=== PATIENT | female | born 1950 | race Caucasian/White ===

== ENCOUNTER 2023-03-17 09:00 | Outpatient (RCR) | payer MEDICARE, OTHER, SELFPAY ==
[2023-03-10 08:46] VITALS: BP 171/61; PULSE 71; RESP 18; TEMP 35.6; BMI 24.5
--- NOTE | 2023-03-10 12:36 | PCM.WC.HP ---
History of Present Illness Date of Service: 03/10/23 Chief Complaint: Traumatic wound of the left pretibial surface History of Wound: This is a 72-year-old female who is generally healthy and active. On approximately January 04, 2023, the patient lost her balance and fell, impacting her left pretibial surface against a coffee table. As result, she sustained an open wound on the left pretibial surface. She was using peroxide topically, and subsequently developed a cellulitis. Her primary care physician urged her to discontinue using peroxide topically, and she has been using a Telfa dressing with Neosporin. In treatment for her cellulitis, the patient has been treated with doxycycline 100 mg p.o. twice daily for 7 days, which is now nearly completed. The patient is active. She is relatively healthy, suffering only from hypertension and sciatica. She smokes only several cigarettes per day, and has been counseled as to the potential adverse effects. FORMERLY [facility], [facility] Medical History (Updated 03/10/23 @ 12:[address] Florencio Alford MD) Cellulitis of left leg Hypertension Non-pressure chronic ulcer of left calf with fat layer exposed Sciatica Tobacco abuse counseling Tobacco abuse disorder Traumatic open wound of left lower leg Home Medications amlodipine 10 mg tablet (Norvasc) 10 mg PO DAILY 03/10/23 [History Last Taken Unknown] doxycycline hyclate 100 mg tablet 100 mg PO BID 03/10/23 [History Last Taken Unknown] gabapentin 300 mg capsule (Neurontin) 300 mg PO TID 03/10/23 [History Last Taken Unknown] hydrochlorothiazide 12.5 mg capsule 12.5 mg PO QODAY 03/10/23 [History Last Taken Unknown] meloxicam 15 mg tablet 15 mg PO DAILY 03/10/23 [History Last Taken Unknown] no surgical history Social History Smoking Status: Light Smoker (<10/day) Vital Signs Vital Signs Vital Signs: 03/10/23 08:46 Temperature 96.1 F L Temperature Source Temporal Pulse Rate 71 Respiratory Rate 18 Blood Pressure 171/61 H Blood Pressure Mean 97 Blood Pressure Source Monitor Blood Pressure Position Sitting Blood Pressure Location Left Arm Oxygen Delivery Method Room Air Weight Weight: 145 lb Body Mass Index (BMI) 24.5 Physical Exam Const alert, oriented x3, no apparent distress, average body habitus and well nourished Constitutional Narrative: The patient is of relatively normal body habitus, with a BMI of 24.5. General Appearance: cooperative, comfortable, well kempt and well developed Orientation / Consciousness: awake, oriented to person, oriented to place and oriented to time Exam Limitations: no limitations HEENT normocephalic, head/scalp atraumatic, hearing grossly normal bilaterally and external ears normal Head and Scalp: normal to inspection, normocephalic and atraumatic External Ear: external ears normal Eyes PERRL and EOMs intact bilaterally General Eye: normal appearance of both eyes Resp normal respiratory effort, normal air movement, no retractions and no use of accessory muscles Effort and Inspection: able to speak in complete sentences Extremity no calf tenderness General Extremity: Negative for clubbing or cyanosis Skin Wound Narrative: The patient's lower extremities are warm and well-perfused. Pedal pulses are bilaterally palpable. No significant swelling is noted. Two open ulcerations are noted on the left pretibial surface. The dimensions of each are documented elsewhere. There is a moderate amount of bioburden and nonviable/necrotic tissue. Slight periwound erythema is noted. Neuro oriented x3, CN's II-XII intact bilaterally, moves all extremities, no focal motor deficits and no sensory deficits noted Sensorium / Orientation: awake, alert, oriented to person, oriented to place and oriented to time Psych Appearance: grossly normal and appropriate Attitude: calm Activity / Motor Behavior: appropriate eye contact Speech: normal speech Mood & Affect: euthymic mood Thought Process: normal thought process Thought Content: normal thought content Attention / Concentration: attention grossly intact Debridement Note Debridement Note Wound debrided: Left pretibial wounds Laterality: Left Type of Debridement: Excisional debridement Anesthesia Used: 5% Lidocaine Gel Depth: Down to and including healthy tissue and in the subcutaneous layer Percentage of wound debrided: 100 Instrument Used: 5mm curette Severity: Fat Layer Exposed Amount of bleeding with debridement: Mild Bleeding Controlled with: Compression and gauze Patient tolerated procedure: Patient tolerated procedure well Post-Debridement Measurements and Additional Note: Post-Debridement Measurements/Treatment LEE - Nurse 1 - General Ulcer Assessment Start: 03/10/23 08:45 Freq: Status: Active Protocol: LAUREN Activity Type Activity Date Activity User E-sign Co-sign Detail Recorded Client Recorded Date Recorded By Document 03/10/23 08:46 KW Desktop 03/10/23 09:07 KW 03/10/23 08:46 WC - Today's Visit Information Type of service Initial Visit Arrival Mode Ambulatory Patient Identification Verified (Name & Yes ) Height and Weight Height 5 ft 4.5 in Weight 145 lb Weight in Pounds 145.0 lbs Weight Measurement Method Stated by Patient Body Mass Index (BMI) 24.5 BMI Classification Normal BSA - Chanel 1.72 Vital Signs Temperature (97.8 F-99.1 F) 96.1 F L Temperature Source Temporal Pulse Rate (60-100) 71 Pulse Location Monitor Respiratory Rate (12-18) 18 Respiratory rate source Observation Oxygen Delivery Method Room Air Blood Pressure (90/60-120/80) 171/61 H Blood Pressure Mean 97 Source Monitor Position Sitting Blood Pressure Location Left Arm History Since Last Visit- (Skip if this is Patient's initial visit) Left Footwear Regular Shoe Right Footwear Regular Shoe Pain Scale: 0-10 Numeric Is Patient Pain Free? No LLE -Description Burning -Intensity 4 -Alleviating Factors/Interventions None Communication Assessment Preferred language [place] [employer] Tool Setter Required No Able to Read Yes Able to Write Yes Communication Tools None Caregiver Communication Skills No Impairment Impairment Right Hearing Abillity Normal Left Hearing Abillity Normal Visual Assistive Devices Glasses Teaching Assessment Preferences Verbal,Written, Demonstration Barriers to Learning None Readiness To Learn Excellent Willingness to Engage in Self Management High Activies Readiness to Engage in Self Management High Activities Anxiety Level Calm Cooperation Cooperative Perception Coherent Interest in Health Problem Asks Questions Education Importance Acknowledges Need Does Patient Smoke tobacco or other Yes substances Smoking Status Light Smoker (< 10/day) Is Patient Diabetic No Functional Assessment Recent Decline in Ability to Perform Denies Any Declines 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 CLUSTER -Current Size (cm) - Length 6.3 -Current Size (cm) - Width 1.7 -Current Size (cm) - Depth 0.4 -Total Square Cm 10.71 -Photo Taken Yes -Exudate Amt Medium -Exudate Type Serosanguineous -Wound Margin Distinct, Outline Attached -Granulation Amt Small (1-33%) -Granulation Quality Red -Necrosis Amt Large (67-100%) -Necrotic Tissue Type Adherent Slough -Texture (Anni-wound Skin Appearance) Assessed -Moisture (Anni-wound Skin Appearance) Assessed -Color (Anni-wound Skin Appearance) Assessed, Erythema -Temperature (Anni-wound Skin No Abnormality Appearance) (Pt Warm) -Ulcer Cleansing Soap and Water -Foul Odor after Cleansing No -Anesthetic Used 5% Lidocaine Gel Left Calf (cm) 32.0 Left Ankle (cm) 20.0 WC - Nurse 2 - General Ulcer CM Notes Start: 03/10/23 08:45 Freq: Status: Active Protocol: Activity Type Activity Date Activity User E-sign Co-sign Detail Recorded Client Recorded Date Recorded By Document 03/10/23 11:32 PL [id number] 03/10/23 11:33 PL 03/10/23 11:32 Wound Center Nurse 2 #1 LEFT MONTEMAYOR CLUSTER -Time 09:19 -Correct Patient Yes -Correct Side, Site, Position Yes -Correct Procedure Yes -Procedure Performed Yes -Type of Procedure Debridement -Clinical Debridement Subcutaneous -Tissue Removed Subcutaneous -Post Debridement (cm) - Length 6.3 -Post Debridement (cm) - Width 1.7 -Post Debridement (cm) - Depth 0.4 -Total Square (Post) (cm) 10.71 -Area of Debridement (cm) - Length 6.3 -Area of Debridement (cm) - Width 1.7 -Total Square (Area) (cm) 10.71 -Tunneling No -Undermining/Tunneling No -Circular Undermining No -Wound/Ulcer Outcome Not Healed -Ulcer Cleansing Rinsed/ Irrigated with Saline -Foul Odor after Cleansing No -Bioengineered Tissue No -Bleeding Controlled with Pressure -Treatment Response Procedure Tolerated Well -Debridement - Subq, 1st 20sq cm Yes Pain Scale: 0-10 Numeric Is Patient Pain Free? Yes WC - Nurse 3 - General Ulcer D/C NN Start: 03/10/23 08:45 Freq: Status: Active Protocol: Activity Type Activity Date Activity User E-sign Co-sign Detail Recorded Client Recorded Date Recorded By Document 03/10/23 11:32 PL [id number] 03/10/23 11:33 PL 03/10/23 11:32 Is Patient Pain Free? Yes Assessment/Plan Assessment/Plan (1) Traumatic open wound of left lower leg: CODE(S): S81.802A - Unspecified open wound, left lower leg, initial encounter QUALIFIERS: Encounter type: initial encounter Qualified Code(s): S81.802A - Unspecified open wound, left lower leg, initial encounter (2) Non-pressure chronic ulcer of left calf with fat layer exposed: CODE(S): L97.222 - Non-pressure chronic ulcer of left calf with fat layer exposed (3) Cellulitis of left leg: CODE(S): L03.116 - Cellulitis of left lower limb (4) Tobacco abuse disorder: CODE(S): Z72.0 - Tobacco use (5) Tobacco abuse counseling: CODE(S): Z71.6 - Tobacco abuse counseling (6) Hypertension: CODE(S): I10 - Essential (primary) hypertension (7) Sciatica: CODE(S): M54.30 - Sciatica, unspecified side PLAN: Plan This is a 72-year-old generally healthy female who presented with atraumatic wound on the left pretibial surface. The wound occurred as a result of a traumatic impact of her left pretibial surface against a coffee table. The patient developed a chronic, nonhealing wound with cellulitis. Most recently, she has been treated with a course of oral doxycycline, which is now nearly completed. She has been using Neosporin and Telfa topically. The patient has been instructed to complete her course of doxycycline. Because of the presence of necrotic and nonviable tissue at the surface of her wound, we are to implement the use of collagenase Santyl topically, which will be applied on a daily basis. The patient has been instructed in the appropriate means of application. She has been provided a prescription and coupon for the purchase of collagenase Santyl. Additionally, serial debridements are anticipated to rid the wound surface of the nonviable material. A gauze dressing has been recommended for use over the collagenase Santyl with each application. The patient is to return in 1 week for reassessment. Total time: 48 minutes
[2023-03-17 08:51] VITALS: BP 151/60; PULSE 68; RESP 18; TEMP 36.7; BMI 24.5
--- NOTE | 2023-03-17 09:13 | PCM.WC.HP ---
History of Present Illness Date of Service: 03/17/23 Chief Complaint: Traumatic wound of the left pretibial surface History of Wound: This is a 72-year-old female who is generally healthy and active. On approximately January 04, 2023, the patient lost her balance and fell, impacting her left pretibial surface against a coffee table. As result, she sustained an open wound on the left pretibial surface. She was using peroxide topically, and subsequently developed a cellulitis. Her primary care physician urged her to discontinue using peroxide topically, and she has been using a Telfa dressing with Neosporin. In treatment for her cellulitis, the patient has been treated with doxycycline 100 mg p.o. twice daily for 7 days, which is now nearly completed. The patient is active. She is relatively healthy, suffering only from hypertension and sciatica. She smokes only several cigarettes per day, and has been counseled as to the potential adverse effects. [facility] Medical History Cellulitis of left leg Hypertension Non-pressure chronic ulcer of left calf with fat layer exposed Sciatica Tobacco abuse counseling Tobacco abuse disorder Traumatic open wound of left lower leg Home Medications amlodipine 10 mg tablet (Norvasc) 10 mg PO DAILY 03/10/23 [History Last Taken Unknown] doxycycline hyclate 100 mg tablet 100 mg PO BID 03/10/23 [History Last Taken Unknown] gabapentin 300 mg capsule (Neurontin) 300 mg PO TID 03/10/23 [History Last Taken Unknown] hydrochlorothiazide 12.5 mg capsule 12.5 mg PO QODAY 03/10/23 [History Last Taken Unknown] meloxicam 15 mg tablet 15 mg PO DAILY 03/10/23 [History Last Taken Unknown] Surgical History no surgical history Social History Smoking Status: Light Smoker (<10/day) Vital Signs Vital Signs Vital Signs: 03/17/23 08:51 Temperature 98.1 F Temperature Source Temporal Pulse Rate 68 Respiratory Rate 18 Blood Pressure 151/60 H Blood Pressure Mean 90 Blood Pressure Source Monitor Blood Pressure Position Sitting Blood Pressure Location Left Arm Oxygen Delivery Method Room Air Weight Weight: 145 lb Body Mass Index (BMI) 24.5 Physical Exam Const alert, oriented x3, no apparent distress, average body habitus and well nourished Constitutional Narrative: The patient is of relatively normal body habitus, with a BMI of 24.5. General Appearance: cooperative, comfortable, well kempt and well developed Orientation / Consciousness: awake, oriented to person, oriented to place and oriented to time Exam Limitations: no limitations HEENT normocephalic, head/scalp atraumatic, hearing grossly normal bilaterally and external ears normal Head and Scalp: normal to inspection, normocephalic and atraumatic External Ear: external ears normal Eyes PERRL and EOMs intact bilaterally General Eye: normal appearance of both eyes Resp normal respiratory effort, normal air movement, no retractions and no use of accessory muscles Effort and Inspection: able to speak in complete sentences Extremity no calf tenderness General Extremity: Negative for clubbing or cyanosis Skin Wound Narrative: The patient's lower extremities are warm and well-perfused. Pedal pulses are bilaterally palpable. No significant swelling is noted. Two open ulcerations are noted on the left pretibial surface. The dimensions of each are documented elsewhere. There is a moderate amount of bioburden and nonviable/necrotic tissue. The amount of nonviable tissue has diminished since the patient's initial visit. There are increasing areas of pink, healthy, granulation tissue. There is no evidence of infection or cellulitis. Neuro oriented x3, CN's II-XII intact bilaterally, moves all extremities, no focal motor deficits and no sensory deficits noted Sensorium / Orientation: awake, alert, oriented to person, oriented to place and oriented to time Psych Appearance: grossly normal and appropriate Attitude: calm Activity / Motor Behavior: appropriate eye contact Speech: normal speech Mood & Affect: euthymic mood Thought Process: normal thought process Thought Content: normal thought content Attention / Concentration: attention grossly intact Debridement Note Debridement Note Wound debrided: Left pretibial wounds Laterality: Left Type of Debridement: Excisional debridement Anesthesia Used: 5% Lidocaine Gel Depth: Down to and including healthy tissue and in the subcutaneous layer Percentage of wound debrided: 100 Instrument Used: 5mm curette Severity: Fat Layer Exposed Amount of bleeding with debridement: Mild Bleeding Controlled with: Compression and gauze Patient tolerated procedure: Patient tolerated procedure well Post-Debridement Measurements and Additional Note: Post-Debridement Measurements/Treatment LEE - Nurse 1 - General Ulcer Assessment Start: 03/10/23 08:45 Freq: Status: Active Protocol: LOWEXT Activity Type Activity Date Activity User E-sign Co-sign Detail Recorded Client Recorded Date Recorded By Document 03/10/23 08:46 KW Desktop 03/10/23 09:07 KW Document 03/17/23 08:51 KW Desktop 03/17/23 09:01 KW 03/10/23 03/17/23 08:46 08:51 WC - Today's Visit Information Type of service Initial Visit Nurse-only Visit Arrival Mode Ambulatory Ambulatory Patient Identification Verified (Name & Yes Yes ) Height and Weight Height 5 ft 4.5 in Weight 145 lb Weight in Pounds 145.0 lbs Weight Measurement Method Stated by Patient Body Mass Index (BMI) 24.5 24.5 BMI Classification Normal Normal BSA - Chanel 1.72 Vital Signs Temperature (97.8 F-99.1 F) 96.1 F L 98.1 F Temperature Source Temporal Temporal Pulse Rate (60-100) 71 68 Pulse Location Monitor Monitor Respiratory Rate (12-18) 18 18 Respiratory rate source Observation Observation Oxygen Delivery Method Room Air Room Air Blood Pressure (90/60-120/80) 171/61 H 151/60 H Blood Pressure Mean 97 90 Source Monitor Monitor Position Sitting Sitting Blood Pressure Location Left Arm Left Arm History Since Last Visit- (Skip if this is Patient's initial visit) Have you changed medications since your No last visit? Any new allergies or adverse reactions No Had a fall/change in ADL's that may No increase risk of falls Signs or symptoms of abuse and/or No neglect since last visit Have you been in the hospital since your No last visit? Has dressing in place as prescribed Yes Has compression in place as prescribed Yes Has offloadiing in place as prescribed No Experienced any changes in pain level or No management Left Footwear Regular Shoe Regular Shoe Right Footwear Regular Shoe Regular Shoe Pain Scale: 0-10 Numeric Is Patient Pain Free? No Yes LLE -Description Burning -Intensity 4 -Alleviating Factors/Interventions None Communication Assessment Preferred language Lao [employer] Assembly Worker Required No Able to Read Yes Able to Write Yes Communication Tools None Caregiver Communication Skills No Impairment Impairment Right Hearing Abillity Normal Left Hearing Abillity Normal Visual Assistive Devices Glasses Teaching Assessment Preferences Verbal,Written, Demonstration Barriers to Learning None Readiness To Learn Excellent Willingness to Engage in Self Management High Activies Readiness to Engage in Self Management High Activities Anxiety Level Calm Cooperation Cooperative Perception Coherent Interest in Health Problem Asks Questions Education Importance Acknowledges Need Does Patient Smoke tobacco or other Yes substances Smoking Status Light Smoker (< 10/day) Is Patient Diabetic No Functional Assessment Recent Decline in Ability to Perform Denies Any Declines Culture/Restorationist/Social Media Editor Cultural/Restorationist Needs that may affect No Treatment Plan Would you allow our hospital warehouse order selector to No meet you for the purpose of spiritual/ emotional support? Social Media Editor to contact place of anabaptist No WC - Nurse 1 - General Ulcer Measurement Start: 03/10/23 08:45 Freq: Status: Active Protocol: Activity Type Activity Date Activity User E-sign Co-sign Detail Recorded Client Recorded Date Recorded By Document 03/10/23 08:46 KW Desktop 03/10/23 09:07 KW Document 03/17/23 08:51 KW Desktop 03/17/23 09:01 KW 03/10/23 03/17/23 08:46 08:51 Wound Center Nurse 1 #1 LEFT MONTEMAYOR CLUSTER -Current Size (cm) - Length 6.3 6 -Current Size (cm) - Width 1.7 1.5 -Current Size (cm) - Depth 0.4 0.2 -Total Square Cm 10.71 9.0 -Photo Taken Yes -Exudate Amt Medium Medium -Exudate Type Serosanguineous Serosanguineous -Wound Margin Distinct, Distinct, Outline Outline Attached Attached -Granulation Amt Small (1-33%) Small (1-33%) -Granulation Quality [place] -Necrosis Amt Large (67-100%) Large (67-100%) -Necrotic Tissue Type Adherent Slough Adherent Slough -Texture (Anni-wound Skin Appearance) Assessed Assessed -Moisture (Anni-wound Skin Appearance) Assessed Assessed -Color (Anni-wound Skin Appearance) Assessed, Assessed, Erythema Erythema -Temperature (Anni-wound Skin No Abnormality No Abnormality Appearance) (Pt Warm) (Pt Warm) -Ulcer Cleansing Soap and Water Rinsed/ Irrigated with Saline -Foul Odor after Cleansing No No -Anesthetic Used 5% Lidocaine 5% Lidocaine Gel Gel Left Calf (cm) 32.0 Left Ankle (cm) 20.0 WC - Nurse 2 - General Ulcer CM Notes Start: 03/10/23 08:45 Freq: Status: Active Protocol: Activity Type Activity Date Activity User E-sign Co-sign Detail Recorded Client Recorded Date Recorded By Document 03/10/23 11:32 PL [id number] 03/10/23 11:33 PL 03/10/23 11:32 Wound Center Nurse 2 -Time 09:19 -Correct Patient Yes -Correct Side, Site, Position Yes -Correct Procedure Yes -Procedure Performed Yes -Type of Procedure Debridement -Clinical Debridement Subcutaneous -Tissue Removed Subcutaneous -Post Debridement (cm) - Length 6.3 -Post Debridement (cm) - Width 1.7 -Post Debridement (cm) - Depth 0.4 -Total Square (Post) (cm) 10.71 -Area of Debridement (cm) - Length 6.3 -Area of Debridement (cm) - Width 1.7 -Total Square (Area) (cm) 10.71 -Tunneling No -Undermining/Tunneling No -Circular Undermining No -Wound/Ulcer Outcome Not Healed -Ulcer Cleansing Rinsed/ Irrigated with Saline -Foul Odor after Cleansing No -Bioengineered Tissue No -Bleeding Controlled with Pressure -Treatment Response Procedure Tolerated Well -Debridement - Subq, 1st 20sq cm Yes Pain Scale: 0-10 Numeric Is Patient Pain Free? Yes WC - Nurse 3 - General Ulcer D/C NN Start: 03/10/23 08:45 Freq: Status: Active Protocol: Activity Type Activity Date Activity User E-sign Co-sign Detail Recorded Client Recorded Date Recorded By Document 03/10/23 11:32 PL [id number] 03/10/23 11:33 PL 03/10/23 11:32 Is Patient Pain Free? Yes Assessment/Plan Assessment/Plan (1) Traumatic open wound of left lower leg: CODE(S): S81.802A - Unspecified open wound, left lower leg, initial encounter QUALIFIERS: Encounter type: subsequent encounter Qualified Code(s): S81.802D - Unspecified open wound, left lower leg, subsequent encounter PLAN: Open wound - subsequent encounter (2) Non-pressure chronic ulcer of left calf with fat layer exposed: CODE(S): L97.222 - Non-pressure chronic ulcer of left calf with fat layer exposed (3) Cellulitis of left leg: CODE(S): L03.116 - Cellulitis of left lower limb (4) Tobacco abuse disorder: CODE(S): Z72.0 - Tobacco use (5) Tobacco abuse counseling: CODE(S): Z71.6 - Tobacco abuse counseling (6) Hypertension: CODE(S): I10 - Essential (primary) hypertension (7) Sciatica: CODE(S): M54.30 - Sciatica, unspecified side PLAN: Plan This is a 72-year-old generally healthy female who presented with a traumatic wound on the left pretibial surface. The wound occurred as a result of a traumatic impact of her left pretibial surface against a coffee table. The patient developed a chronic, nonhealing wound with cellulitis. Most recently, she has been treated with a course of oral doxycycline, which is now completed. She had been using Neosporin and Telfa topically. Because of the presence of necrotic and nonviable tissue at the surface of her wound, we provided a prescription for Collagenase Santyl, to be applied on a daily basis. However, the patient's insurance coverage did not provide for this product, and the expense was beyond the patient's means. Therefore, she implemented the use of Medihoney, which she has been applying topically on a daily basis. It appears as though there has been some benefit since the patient's initial visit. Therefore, Medihoney is to be continued topically on a daily basis. The patient has been instructed in the appropriate means of application. Serial debridements are to continue, and are anticipated to rid the wound surface of the nonviable material. A gauze dressing has been recommended for use over the Medihoney with each application. If significant improvement is not observed with Medihoney, consideration may be given to the use of gauze?moistened Dakin solution. Once the nonviable and necrotic material at the surface of the wound is eliminated, we will consider the use of an EpiFix allograft, which has been preauthorized for use. The patient is to return in 1 week for reassessment. Total time: 26 minutes
== END 2023-03-22 23:59 | disposition home or self-care (01) ==
LOC: WC 09:00
PROVIDERS: PCP Internal Medicine; Referring Provider Internal Medicine; Visit Provider Surgery
DX: L03.116 Cellulitis of left lower limb (principal); L97.222 Non-pressure chronic ulcer of left calf with fat layer exposed; I10 Essential (primary) hypertension; Z72.0 Tobacco use; M54.30 Sciatica, unspecified side; Z71.6 Tobacco abuse counseling; S81.802S Unspecified open wound, left lower leg, sequela
CPT/HCPCS: 11042; 99213; G0463

== ENCOUNTER 2023-04-21 09:45 | Outpatient (RCR) | payer MEDICARE, OTHER, SELFPAY ==
[2023-03-23 00:50] VITALS: BP 151/60; PULSE 68; RESP 18; TEMP 36.7; BMI 24.5
[2023-03-24 08:59] VITALS: BP 169/57; PULSE 70; RESP 18; TEMP 35.9; BMI 24.5
--- NOTE | 2023-03-24 09:27 | HP.PCM_ITS ---
History of Present Illness Date of Service: 03/24/23 Chief Complaint: Traumatic wound of the left pretibial surface History of Wound: This is a 72-year-old female who is generally healthy and active. On approximately January 04, 2023, the patient lost her balance and fell, impacting her left pretibial surface against a coffee table. As result, she sustained an open wound on the left pretibial surface. She was using peroxide topically, and subsequently developed a cellulitis. Her primary care physician urged her to discontinue using peroxide topically, and she has been using a Telfa dressing with Neosporin. In treatment for her cellulitis, the patient has been treated with doxycycline 100 mg p.o. twice daily for 7 days, which is now nearly completed. The patient is active. She is relatively healthy, suffering only from hypertension and sciatica. She smokes only several cigarettes per day, and has been counseled as to the potential adverse effects. [facility] Medical History Cellulitis of left leg Hypertension Non-pressure chronic ulcer of left calf with fat layer exposed Sciatica Tobacco abuse counseling Tobacco abuse disorder Traumatic open wound of left lower leg Home Medications amlodipine 10 mg tablet (Norvasc) 10 mg PO DAILY 03/10/23 [History Last Taken Unknown] doxycycline hyclate 100 mg tablet 100 mg PO BID 03/10/23 [History Last Taken Unknown] gabapentin 300 mg capsule (Neurontin) 300 mg PO TID 03/10/23 [History Last Taken Unknown] hydrochlorothiazide 12.5 mg capsule 12.5 mg PO QODAY 03/10/23 [History Last Taken Unknown] meloxicam 15 mg tablet 15 mg PO DAILY 03/10/23 [History Last Taken Unknown] Surgical History no surgical history Social History Smoking Status: Light Smoker (<10/day) Vital Signs Vital Signs Vital Signs: 03/24/23 08:59 Temperature 96.6 F L Temperature Source Temporal Pulse Rate 70 Respiratory Rate 18 Blood Pressure 169/57 H Blood Pressure Mean 94 Blood Pressure Source Monitor Blood Pressure Position Semi-Fowlers Blood Pressure Location Right Arm Weight Weight: 145 lb Body Mass Index (BMI) 24.5 Physical Exam Const alert, oriented x3, no apparent distress, average body habitus and well nourished Constitutional Narrative: The patient is of relatively normal body habitus, with a BMI of 24.5. General Appearance: cooperative, comfortable, well kempt and well developed Orientation / Consciousness: awake, oriented to person, oriented to place and oriented to time Exam Limitations: no limitations HEENT normocephalic, head/scalp atraumatic, hearing grossly normal bilaterally and external ears normal Head and Scalp: normal to inspection, normocephalic and atraumatic External Ear: external ears normal Eyes PERRL and EOMs intact bilaterally General Eye: normal appearance of both eyes Resp normal respiratory effort, normal air movement, no retractions and no use of accessory muscles Effort and Inspection: able to speak in complete sentences Extremity no calf tenderness General Extremity: Negative for clubbing or cyanosis Skin Wound Narrative: The patient's lower extremities are warm and well-perfused. Pedal pulses are bilaterally palpable. No significant swelling is noted. An open ulceration is noted on the left pretibial surface. The dimensions are documented elsewhere. There is a moderate amount of bioburden and nonviable/necrotic tissue. The amount of nonviable tissue has diminished since the patient's initial visit. There are increasing areas of pink, healthy, granulation tissue. It is noted that there has been development of anni-wound erythema since the patient's last visit. Swab cultures have been obtained for aerobic and anaerobic bacterial growth. Neuro oriented x3, CN's II-XII intact bilaterally, moves all extremities, no focal motor deficits and no sensory deficits noted Sensorium / Orientation: awake, alert, oriented to person, oriented to place and oriented to time Psych Appearance: grossly normal and appropriate Attitude: calm Activity / Motor Behavior: appropriate eye contact Speech: normal speech Mood & Affect: euthymic mood Thought Process: normal thought process Thought Content: normal thought content Attention / Concentration: attention grossly intact Debridement Note Debridement Note Wound debrided: Left pretibial wounds Laterality: Left Type of Debridement: Excisional debridement Anesthesia Used: 5% Lidocaine Gel Depth: Down to and including healthy tissue and in the subcutaneous layer Percentage of wound debrided: 100 Instrument Used: 5mm curette Severity: Fat Layer Exposed Amount of bleeding with debridement: Mild Bleeding Controlled with: Compression and gauze Patient tolerated procedure: Patient tolerated procedure well Debridement Free Text: Nonviable tissue persists in the patient's left lower extremity ulceration. However, majority of this nonviable tissue was easily removed during the course of the debridement. Anni-wound erythema is noted, suggesting the presence of developing cellulitis. Swab cultures have been obtained for the purpose of identifying the presence of aerobic and anaerobic bacterial growth. Post-Debridement Measurements and Additional Note: Post-Debridement Measurements/Treatment LEE - Nurse 1 - General Ulcer Assessment Start: 03/24/23 08:59 Freq: Status: Active Protocol: LAUREN Activity Type Activity Date Activity User E-sign Co-sign Detail Recorded Client Recorded Date Recorded By Document 03/24/23 08:59 RB Desktop 03/24/23 09:05 RB 03/24/23 08:59 WC - Today's Visit Information Type of service Follow-up Visit (Physician/HOSPITAL CHIEF FINANCIAL OFFICER ) Arrival Mode Ambulatory Transfer Assistance None Patient Identification Verified (Name & Yes ) Patient Requires Transmission-Based No Precautions Height and Weight Body Mass Index (BMI) 24.5 BMI Classification Normal Vital Signs Temperature (97.8 F-99.1 F) 96.6 F L Temperature Source Temporal Pulse Rate (60-100) 70 Pulse Location Monitor Respiratory Rate (12-18) 18 Respiratory rate source Observation Blood Pressure (90/60-120/80) 169/57 H Blood Pressure Mean 94 Source Monitor Position Semi-Fowlers Blood Pressure Location Right Arm History Since Last Visit- (Skip if this is Patient's initial visit) Have you changed medications since your No last visit? Any new allergies or adverse reactions No Had a fall/change in ADL's that may No increase risk of falls Signs or symptoms of abuse and/or No neglect since last visit Have you been in the hospital since your No last visit? Has dressing in place as prescribed Yes Has compression in place as prescribed Yes Has offloadiing in place as prescribed No Experienced any changes in pain level or No management Pain Scale: 0-10 Numeric Is Patient Pain Free? Yes LEE - Nurse 1 - General Ulcer Measurement Start: 03/24/23 08:59 Freq: Status: Active Protocol: Activity Type Activity Date Activity User E-sign Co-sign Detail Recorded Client Recorded Date Recorded By Document 03/24/23 08:59 RB [email or web address] 03/24/23 09:05 RB 03/24/23 08:59 Wound Center Nurse 1 #1 LEFT MONTEMAYOR CLUSTER -Combined with other wound No -Current Size (cm) - Length 4.6 -Current Size (cm) - Width 1.9 -Current Size (cm) - Depth 0.2 -Total Square Cm 8.74 -Photo Taken Yes -Tunneling No -Undermining/Tunneling No -Circular Undermining No -Exudate Amt Medium -Exudate Type Serosanguineous -Wound Margin Distinct, Outline Attached -Granulation Amt Medium (34-66%) -Granulation Quality [place] -Slough/Fibrin Yes -Necrosis Amt Medium (34-66%) -Necrotic Tissue Type Adherent Slough -Structure Exposed N/A -Texture (Anni-wound Skin Appearance) Assessed -Moisture (Anni-wound Skin Appearance) Assessed -Color (Anni-wound Skin Appearance) Assessed -Temperature (Anni-wound Skin No Abnormality Appearance) (Pt Warm) -Tenderness on Palpation (Anni-wound No Skin Appearance) -Ulcer Cleansing Wound Cleanser -Foul Odor after Cleansing No -Anesthetic Used 5% Lidocaine Gel Lower Limb Edema Present Yes Left Calf (cm) 32.5 Left Ankle (cm) 19 Assessment/Plan Assessment/Plan (1) Traumatic open wound of left lower leg: CODE(S): S81.802A - Unspecified open wound, left lower leg, initial encounter QUALIFIERS: Encounter type: subsequent encounter Qualified Code(s): S81.802D - Unspecified open wound, left lower leg, subsequent encounter PLAN: Open wound - subsequent encounter (2) Non-pressure chronic ulcer of left calf with fat layer exposed: CODE(S): L97.222 - Non-pressure chronic ulcer of left calf with fat layer exposed (3) Cellulitis of left leg: CODE(S): L03.116 - Cellulitis of left lower limb (4) Tobacco abuse disorder: CODE(S): Z72.0 - Tobacco use (5) Tobacco abuse counseling: CODE(S): Z71.6 - Tobacco abuse counseling (6) Hypertension: CODE(S): I10 - Essential (primary) hypertension (7) Sciatica: CODE(S): M54.30 - Sciatica, unspecified side PLAN: Plan This is a 72-year-old generally healthy female who presented with a traumatic wound on the left pretibial surface. The wound occurred as a result of a traumatic impact of her left pretibial surface against a coffee table. The patient developed a chronic, nonhealing wound with cellulitis. Most recently, she has been treated with a course of oral doxycycline, which is now completed. She had been using Neosporin and Telfa topically. Because of the presence of necrotic and nonviable tissue at the surface of her wound, we provided a prescription for Collagenase Santyl, to be applied on a daily basis. However, the patient's insurance coverage did not provide for this product, and the expense was beyond the patient's means. Therefore, she implemented the use of Medihoney, which she has been applying topically on a daily basis. It appears as though there has been some benefit since the patient's initial visit. Therefore, Medihoney is to be continued topically on a daily basis. The patient has been instructed in the appropriate means of application. Serial debridements are to continue, and are anticipated to rid the wound surface of the nonviable material. A gauze dressing has been recommended for use over the Medihoney with each application. If significant improvement is not observed with Medihoney, consideration may be given to the use of gauze?moistened Dakin solution. Once the nonviable and necrotic material at the surface of the wound is eliminated, we will consider the use of an EpiFix allograft, which has been preauthorized for use. Anni-wound erythema is noted at this visit, suggesting the presence of developing cellulitis. Swab cultures have been obtained for aerobic and anaerobic bacterial growth. Results of the cultures will be awaited. The patient is to return in 1 week for reassessment. Total time: 25 minutes
[2023-03-31 08:50] VITALS: BP 166/67; PULSE 72; RESP 18; TEMP 35.8; BMI 24.5
--- NOTE | 2023-03-31 09:13 | HP.PCM_ITS ---
History of Present Illness Date of Service: 03/31/23 Chief Complaint: Traumatic wound of the left pretibial surface History of Wound: This is a 72-year-old female who is generally healthy and active. On approximately January 04, 2023, the patient lost her balance and fell, impacting her left pretibial surface against a coffee table. As result, she sustained an open wound on the left pretibial surface. She was using peroxide topically, and subsequently developed a cellulitis. Her primary care physician urged her to discontinue using peroxide topically, and she has been using a Telfa dressing with Neosporin. In treatment for her cellulitis, the patient has been treated with doxycycline 100 mg p.o. twice daily for 7 days, which is now nearly completed. The patient is active. She is relatively healthy, suffering only from hypertension and sciatica. She smokes only several cigarettes per day, and has been counseled as to the potential adverse effects. [facility] Medical History Cellulitis of left leg Hypertension Non-pressure chronic ulcer of left calf with fat layer exposed Sciatica Tobacco abuse counseling Tobacco abuse disorder Traumatic open wound of left lower leg Home Medications amlodipine 10 mg tablet (Norvasc) 10 mg PO DAILY 03/10/23 [History Last Taken Unknown] doxycycline hyclate 100 mg tablet 100 mg PO BID 03/10/23 [History Last Taken Unknown] gabapentin 300 mg capsule (Neurontin) 300 mg PO TID 03/10/23 [History Last Taken Unknown] hydrochlorothiazide 12.5 mg capsule 12.5 mg PO QODAY 03/10/23 [History Last Taken Unknown] meloxicam 15 mg tablet 15 mg PO DAILY 03/10/23 [History Last Taken Unknown] Surgical History no surgical history Social History Smoking Status: Light Smoker (<10/day) Vital Signs Vital Signs Vital Signs: 03/31/23 08:50 Temperature 96.5 F L Temperature Source Temporal Pulse Rate 72 Respiratory Rate 18 Blood Pressure 166/67 H Blood Pressure Mean 100 Blood Pressure Source Monitor Blood Pressure Position Semi-Fowlers Blood Pressure Location Left Arm Weight Weight: 145 lb Body Mass Index (BMI) 24.5 Physical Exam Const alert, oriented x3, no apparent distress, average body habitus and well nourished Constitutional Narrative: The patient is of relatively normal body habitus, with a BMI of 24.5. General Appearance: cooperative, comfortable, well kempt and well developed Orientation / Consciousness: awake, oriented to person, oriented to place and oriented to time Exam Limitations: no limitations HEENT normocephalic, head/scalp atraumatic, hearing grossly normal bilaterally and external ears normal Head and Scalp: normal to inspection, normocephalic and atraumatic External Ear: external ears normal Eyes PERRL and EOMs intact bilaterally General Eye: normal appearance of both eyes Resp normal respiratory effort, normal air movement, no retractions and no use of accessory muscles Effort and Inspection: able to speak in complete sentences Extremity no calf tenderness General Extremity: Negative for clubbing or cyanosis Skin Wound Narrative: The patient's lower extremities are warm and well-perfused. Pedal pulses are bilaterally palpable. No significant swelling is noted. An open wound is noted on the left pretibial surface. The dimensions are documented elsewhere. There is a moderate amount of bioburden and nonviable/necrotic tissue. The amount of nonviable tissue has diminished since the patient's initial visit. There are increasing areas of pink, healthy, granulation tissue. The periwound erythema, initially noted 1 week ago, appears to be diminishing, now that the patient has started on an oral antibiotic. Neuro oriented x3, CN's II-XII intact bilaterally, moves all extremities, no focal motor deficits and no sensory deficits noted Sensorium / Orientation: awake, alert, oriented to person, oriented to place and oriented to time Psych Appearance: grossly normal and appropriate Attitude: calm Activity / Motor Behavior: appropriate eye contact Speech: normal speech Mood & Affect: euthymic mood Thought Process: normal thought process Thought Content: normal thought content Attention / Concentration: attention grossly intact Debridement Note Debridement Note Wound debrided: Left pretibial wound Laterality: Left Type of Debridement: Excisional debridement Anesthesia Used: 5% Lidocaine Gel Depth: Down to and including healthy tissue and in the subcutaneous layer Percentage of wound debrided: 100 Instrument Used: 5mm curette Severity: Fat Layer Exposed Amount of bleeding with debridement: Mild Bleeding Controlled with: Compression and gauze Patient tolerated procedure: Patient tolerated procedure well Debridement Free Text: Nonviable tissue persists in the patient's left lower extremity ulceration, though in decreasing amount. Anni-wound erythema is noted, which appears to be decreasing, now that the patient is taking an oral antibiotic. Post-Debridement Measurements and Additional Note: Post-Debridement Measurements/Treatment WC - Nurse 1 - General Ulcer Assessment Start: 03/24/23 08:59 Freq: Status: Active Protocol: LAUREN Activity Type Activity Date Activity User E-sign Co-sign Detail Recorded Client Recorded Date Recorded By Document 03/24/23 08:59 RB Desktop 03/24/23 09:05 RB Document 03/31/23 08:50 RB Desktop 03/31/23 08:52 RB 03/24/23 03/31/23 08:59 08:50 WC - Today's Visit Information Type of service Follow-up Visit Follow-up Visit (Physician/AVIATION ELECTRONICS TECHNICIAN (Physician/AVIATION ELECTRONICS TECHNICIAN ) ) Arrival Mode Ambulatory Ambulatory Transfer Assistance None None Patient Identification Verified (Name & Yes Yes ) Patient Requires Transmission-Based No No Precautions Height and Weight Body Mass Index (BMI) 24.5 24.5 BMI Classification Normal Normal Vital Signs Temperature (97.8 F-99.1 F) 96.6 F L 96.5 F L Temperature Source Temporal Temporal Pulse Rate (60-100) 70 72 Pulse Location Monitor Monitor Respiratory Rate (12-18) 18 18 Respiratory rate source Observation Observation Blood Pressure (90/60-120/80) 169/57 H 166/67 H Blood Pressure Mean 94 100 Source Monitor Monitor Position Semi-Fowlers Semi-Fowlers Blood Pressure Location Right Arm Left Arm History Since Last Visit- (Skip if this is Patient's initial visit) Have you changed medications since your No No last visit? Any new allergies or adverse reactions No No Had a fall/change in ADL's that may No No increase risk of falls Signs or symptoms of abuse and/or No No neglect since last visit Have you been in the hospital since your No No last visit? Has dressing in place as prescribed Yes Yes Has compression in place as prescribed Yes Yes Has offloadiing in place as prescribed No No Experienced any changes in pain level or No No management Pain Scale: 0-10 Numeric Is Patient Pain Free? Yes Yes LEE - Nurse 1 - General Ulcer Measurement Start: 03/24/23 08:59 Freq: Status: Active Protocol: Activity Type Activity Date Activity User E-sign Co-sign Detail Recorded Client Recorded Date Recorded By Document 03/24/23 08:59 RB Desktop 03/24/23 09:05 RB Document 03/31/23 08:50 RB Desktop 03/31/23 08:52 RB 03/24/23 03/31/23 08:59 08:50 Wound Center Nurse 1 #1 LEFT MONTEMAYOR CLUSTER -Combined with other wound No No -Current Size (cm) - Length 4.6 4.1 -Current Size (cm) - Width 1.9 1.2 -Current Size (cm) - Depth 0.2 0.3 -Total Square Cm 8.74 4.92 -Photo Taken Yes -Tunneling No No -Undermining/Tunneling No No -Circular Undermining No No -Exudate Amt Medium Medium -Exudate Type Serosanguineous Serosanguineous -Wound Margin Distinct, Thickened & Outline Rolled Under Attached -Granulation Amt Medium (34-66%) Medium (34-66%) -Granulation Quality [place] -Slough/Fibrin Yes Yes -Necrosis Amt Medium (34-66%) Medium (34-66%) -Necrotic Tissue Type Adherent Slough Adherent Slough -Structure Exposed N/A N/A -Texture (Anni-wound Skin Appearance) Assessed Assessed, Scarring -Moisture (Anni-wound Skin Appearance) Assessed Assessed -Color (Anni-wound Skin Appearance) Assessed Assessed -Temperature (Anni-wound Skin No Abnormality No Abnormality Appearance) (Pt Warm) (Pt Warm) -Tenderness on Palpation (Anni-wound No No Skin Appearance) -Ulcer Cleansing Wound Cleanser Wound Cleanser -Foul Odor after Cleansing No No -Anesthetic Used 5% Lidocaine 5% Lidocaine Gel Gel Lower Limb Edema Present Yes Yes Left Calf (cm) 32.5 32.5 Left Ankle (cm) 19 20.1 WC - Nurse 2 - General Ulcer CM Notes Start: 03/24/23 08:59 Freq: Status: Active Protocol: Activity Type Activity Date Activity User E-sign Co-sign Detail Recorded Client Recorded Date Recorded By Document 03/24/23 11:14 PL [id number] 03/24/23 11:15 PL 03/24/23 11:14 Wound Center Nurse 2 #1 LEFT MONTEMAYOR CLUSTER -Time 09:14 -Correct Patient Yes -Correct Side, Site, Position Yes -Correct Procedure Yes -Procedure Performed Yes -Type of Procedure Debridement -Clinical Debridement Subcutaneous -Tissue Removed Subcutaneous -Post Debridement (cm) - Length 4.6 -Post Debridement (cm) - Width 1.9 -Post Debridement (cm) - Depth 0.2 -Total Square (Post) (cm) 8.74 -Area of Debridement (cm) - Length 4.6 -Area of Debridement (cm) - Width 1.9 -Total Square (Area) (cm) 8.74 -Tunneling No -Undermining/Tunneling No -Circular Undermining No -Wound/Ulcer Outcome Not Healed -Ulcer Cleansing Rinsed/ Irrigated with Saline -Foul Odor after Cleansing No -Bioengineered Tissue No -Bleeding Controlled with Pressure -Treatment Response Procedure Tolerated Well -Debridement - Subq, 1st 20sq cm Yes Pain Scale: 0-10 Numeric Is Patient Pain Free? Yes - Nurse 3 - General Ulcer D/C NN Start: 03/24/23 08:59 Freq: Status: Active Protocol: Activity Type Activity Date Activity User E-sign Co-sign Detail Recorded Client Recorded Date Recorded By Document 03/24/23 09:28 Desktop 03/24/23 09:30 03/24/23 09:28 Wound Care Center Nurse 3 #1 LEFT MOTNEMAYOR CLUSTER -Ulcer Cleansing Rinsed/ Irrigated with Saline -Other Dressing medihoney/ silicone bordered foam Left -Other tubigrip single layer Treatment Response Procedure Tolerated Well Pain Scale: 0-10 Numeric Is Patient Pain Free? Yes Teaching: Wound Center Dressing Your Wound -Person Taught Patient -Teaching Method Discussion, Demonstration -Response to teaching Verbalize understanding WC - Visit Discharge Discharge Condition Stable Ambulatory Status Ambulatory Transportation Private Auto Medication Reconcilliation completed & No provided to patient/care provider Clinical Summary of Care Provided Yes Assessment/Plan Assessment/Plan (1) Traumatic open wound of left lower leg: CODE(S): S81.802A - Unspecified open wound, left lower leg, initial encounter QUALIFIERS: Encounter type: subsequent encounter Qualified Code(s): S81.802D - Unspecified open wound, left lower leg, subsequent encounter PLAN: Open wound - subsequent encounter (2) Non-pressure chronic ulcer of left calf with fat layer exposed: CODE(S): L97.222 - Non-pressure chronic ulcer of left calf with fat layer exposed (3) Cellulitis of left leg: CODE(S): L03.116 - Cellulitis of left lower limb (4) Tobacco abuse disorder: CODE(S): Z72.0 - Tobacco use (5) Tobacco abuse counseling: CODE(S): Z71.6 - Tobacco abuse counseling (6) Hypertension: CODE(S): I10 - Essential (primary) hypertension (7) Sciatica: CODE(S): M54.30 - Sciatica, unspecified side PLAN: Plan This is a 72-year-old generally healthy female who presented with a traumatic wound on the left pretibial surface. The wound occurred as a result of a traumatic impact of her left pretibial surface against a coffee table. The patient developed a chronic, nonhealing wound with cellulitis. Most recently, she had been treated with a course of oral doxycycline. She had been using Neosporin and Telfa topically. Because of the presence of necrotic and nonviable tissue at the surface of her wound, we provided a prescription for Collagenase Santyl, to be applied on a daily basis. However, the patient's insurance coverage did not provide for this product, and the expense was beyond the patient's means. Therefore, she implemented the use of Medihoney, which she has been applying topically on a daily basis. It appears as though there has been some benefit since the patient's initial visit. Therefore, Medihoney is to be continued topically on a daily basis. The patient has been instructed in the appropriate means of application. Serial debridements are to continue, and are anticipated to rid the wound surface of the nonviable material. A gauze dress ing has been recommended for use over the Medihoney with each application. If significant improvement is not observed with Medihoney, consideration may be given to the use of gauze?moistened Dakin solution. Once the nonviable and necrotic material at the surface of the wound is eliminated, we will consider the use of an EpiFix allograft, which has been preauthorized for use. Anni- wound erythema was noted at her prior visit, and cultures were obtained. Cultures were positive for Staphylococcus epidermidis, and the patient was started on Cipro 500 mg p.o. twice daily, which is in accordance with the antibiotic sensitivity results. The patient has several more days remaining of the oral Cipro. It appears as though there has been improvement since initiation of the antibiotic. The patient is to return in 1 week for reassessment. Total time: 24 minutes
[2023-04-07 09:33] VITALS: BP 158/67; PULSE 69; RESP 18; TEMP 36.4; BMI 24.5
--- NOTE | 2023-04-07 09:51 | PCM.WC.HP ---
History of Present Illness Date of Service: 04/07/23 Chief Complaint: Traumatic wound of the left pretibial surface History of Wound: This is a 72-year-old female who is generally healthy and active. On approximately January 04, 2023, the patient lost her balance and fell, impacting her left pretibial surface against a coffee table. As result, she sustained an open wound on the left pretibial surface. She was using peroxide topically, and subsequently developed a cellulitis. Her primary care physician urged her to discontinue using peroxide topically, and she has been using a Telfa dressing with Neosporin. In treatment for her cellulitis, the patient has been treated with doxycycline 100 mg p.o. twice daily for 7 days, which is now nearly completed. The patient is active. She is relatively healthy, suffering only from hypertension and sciatica. She smokes only several cigarettes per day, and has been counseled as to the potential adverse effects. [facility] Medical History Cellulitis of left leg Hypertension Non-pressure chronic ulcer of left calf with fat layer exposed Sciatica Tobacco abuse counseling Tobacco abuse disorder Traumatic open wound of left lower leg Home Medications amlodipine 10 mg tablet (Norvasc) 10 mg PO DAILY 03/10/23 [History Last Taken Unknown] doxycycline hyclate 100 mg tablet 100 mg PO BID 03/10/23 [History Last Taken Unknown] gabapentin 300 mg capsule (Neurontin) 300 mg PO TID 03/10/23 [History Last Taken Unknown] hydrochlorothiazide 12.5 mg capsule 12.5 mg PO QODAY 03/10/23 [History Last Taken Unknown] meloxicam 15 mg tablet 15 mg PO DAILY 03/10/23 [History Last Taken Unknown] Surgical History no surgical history Social History Smoking Status: Light Smoker (<10/day) Vital Signs Vital Signs Vital Signs: 04/07/23 09:33 Temperature 97.5 F L Temperature Source Temporal Pulse Rate 69 Respiratory Rate 18 Blood Pressure 158/67 H Blood Pressure Mean 97 Blood Pressure Source Monitor Blood Pressure Position Sitting Blood Pressure Location Right Arm Oxygen Delivery Method Room Air Weight Weight: 145 lb Body Mass Index (BMI) 24.5 Physical Exam Const alert, oriented x3, no apparent distress, average body habitus and well nourished Constitutional Narrative: The patient is of relatively normal body habitus, with a BMI of 24.5. General Appearance: cooperative, comfortable, well kempt and well developed Orientation / Consciousness: awake, oriented to person, oriented to place and oriented to time Exam Limitations: no limitations HEENT normocephalic, head/scalp atraumatic, hearing grossly normal bilaterally and external ears normal Head and Scalp: normal to inspection, normocephalic and atraumatic External Ear: external ears normal Eyes PERRL and EOMs intact bilaterally General Eye: normal appearance of both eyes Resp normal respiratory effort, normal air movement, no retractions and no use of accessory muscles Effort and Inspection: able to speak in complete sentences Extremity no calf tenderness General Extremity: Negative for clubbing or cyanosis Skin Wound Narrative: The patient's lower extremities are warm and well-perfused. Pedal pulses are bilaterally palpable. No significant swelling is noted. An open wound is noted on the left pretibial surface. The dimensions are documented elsewhere. There is a mild amount of bioburden and nonviable/necrotic tissue. The amount of nonviable tissue has diminished since the patient's last visit. There are increasing areas of pink, healthy, granulation tissue. The periwound erythema is now nearly resolved. Neuro oriented x3, CN's II-XII intact bilaterally, moves all extremities, no focal motor deficits and no sensory deficits noted Sensorium / Orientation: awake, alert, oriented to person, oriented to place and oriented to time Psych Appearance: grossly normal and appropriate Attitude: calm Activity / Motor Behavior: appropriate eye contact Speech: normal speech Mood & Affect: euthymic mood Thought Process: normal thought process Thought Content: normal thought content Attention / Concentration: attention grossly intact Debridement Note Debridement Note Wound debrided: Left pretibial wound Laterality: Left Type of Debridement: Excisional debridement Anesthesia Used: 5% Lidocaine Gel Depth: Down to and including healthy tissue and in the subcutaneous layer Percentage of wound debrided: 100 Instrument Used: 5mm curette Severity: Fat Layer Exposed Amount of bleeding with debridement: Mild Bleeding Controlled with: Compression and gauze Patient tolerated procedure: Patient tolerated procedure well Debridement Free Text: Nonviable tissue persists in the patient's left lower extremity ulceration, though in decreasing amount. Anni-wound erythema is now nearly resolved. Post-Debridement Measurements and Additional Note: Post-Debridement Measurements/Treatment WC - Nurse 1 - General Ulcer Assessment Start: 03/24/23 08:59 Freq: Status: Active Protocol: LAUREN Activity Type Activity Date Activity User E-sign Co-sign Detail Recorded Client Recorded Date Recorded By Document 03/24/23 08:59 RB Desktop 03/24/23 09:05 RB Document 03/31/23 08:50 RB Desktop 03/31/23 08:52 RB Document 04/07/23 09:33 KW Desktop 04/07/23 09:41 KW 03/24/23 03/31/23 04/07/23 08:59 08:50 09:33 WC - Today's Visit Information Type of service Follow-up Visit Follow-up Visit Follow-up Visit (Physician/ASSISTANT MANAGER QUALITY MANAGEMENT (Physician/ASSISTANT MANAGER QUALITY MANAGEMENT (Physician/ASSISTANT MANAGER QUALITY MANAGEMENT ) ) ) Arrival Mode Ambulatory Ambulatory Ambulatory Transfer Assistance None None Patient Identification Verified (Name & Yes Yes Yes ) Patient Requires Transmission-Based No No Precautions Height and Weight Body Mass Index (BMI) 24.5 24.5 24.5 BMI Classification Normal Normal Normal Vital Signs Temperature (97.8 F-99.1 F) 96.6 F L 96.5 F L 97.5 F L Temperature Source Temporal Temporal Temporal Pulse Rate (60-100) 70 72 69 Pulse Location Monitor Monitor Monitor Respiratory Rate (12-18) 18 18 18 Respiratory rate source Observation Observation Observation Oxygen Delivery Method Room Air Blood Pressure (90/60-120/80) 169/57 H 166/67 H 158/67 H Blood Pressure Mean 94 100 97 Source Monitor Monitor Monitor Position Semi-Fowlers Semi-Fowlers Sitting Blood Pressure Location Right Arm Left Arm Right Arm History Since Last Visit- (Skip if this is Patient's initial visit) Have you changed medications since your No No No last visit? Any new allergies or adverse reactions No No No Had a fall/change in ADL's that may No No No increase risk of falls Signs or symptoms of abuse and/or No No No neglect since last visit Have you been in the hospital since your No No No last visit? Has dressing in place as prescribed Yes Yes Yes Has compression in place as prescribed Yes Yes Yes Has offloadiing in place as prescribed No No No Experienced any changes in pain level or No No No management Left Footwear Regular Shoe Right Footwear Regular Shoe Pain Scale: 0-10 Numeric Is Patient Pain Free? Yes Yes No LLE -Description Tightness -Intensity 3 -Alleviating Factors/Interventions None WC - Nurse 1 - General Ulcer Measurement Start: 03/24/23 08:59 Freq: Status: Active Protocol: Activity Type Activity Date Activity User E-sign Co-sign Detail Recorded Client Recorded Date Recorded By Document 03/24/23 08:59 RB Desktop 03/24/23 09:05 RB Document 03/31/23 08:50 RB Desktop 03/31/23 08:52 RB Document 04/07/23 09:33 KW Desktop 04/07/23 09:41 KW 03/24/23 03/31/23 04/07/23 08:59 08:50 09:33 Wound Center Nurse 1 #1 LEFT MONTEMAYOR CLUSTER -Combined with other wound No No -Current Size (cm) - Length 4.6 4.1 4.3 -Current Size (cm) - Width 1.9 1.2 1 -Current Size (cm) - Depth 0.2 0.3 0.2 -Total Square Cm 8.74 4.92 4.3 -Photo Taken Yes -Tunneling No No -Undermining/Tunneling No No -Circular Undermining No No -Exudate Amt Medium Medium Small -Exudate Type Serosanguineous Serosanguineous Serosanguineous -Wound Margin Distinct, Thickened & Thickened Outline Rolled Under Attached -Granulation Amt Medium (34-66%) Medium (34-66%) Medium (34-66%) -Granulation Quality Mclean Mclean Red -Slough/Fibrin Yes Yes -Necrosis Amt Medium (34-66%) Medium (34-66%) Medium (34-66%) -Necrotic Tissue Type Adherent Slough Adherent Slough Adherent Slough -Structure Exposed N/A N/A -Texture (Anni-wound Skin Appearance) Assessed Assessed, Assessed, Scarring Localized Edema -Moisture (Anni-wound Skin Appearance) Assessed Assessed Assessed -Color (Anni-wound Skin Appearance) Assessed Assessed Assessed, Erythema -Temperature (Anni-wound Skin No Abnormality No Abnormality No Abnormality Appearance) (Pt Warm) (Pt Warm) (Pt Warm) -Tenderness on Palpation (Anni-wound No No Skin Appearance) -Ulcer Cleansing Wound Cleanser Wound Cleanser Rinsed/ Irrigated with Saline -Foul Odor after Cleansing No No No -Anesthetic Used 5% Lidocaine 5% Lidocaine 5% Lidocaine Gel Gel Gel Lower Limb Edema Present Yes Yes Left Calf (cm) 32.5 32.5 31.5 Left Ankle (cm) 19 20.1 18.6 - Nurse 2 - General Ulcer CM Notes Start: 03/24/23 08:59 Freq: Status: Active Protocol: Activity Type Activity Date Activity User E-sign Co-sign Detail Recorded Client Recorded Date Recorded By Document 03/24/23 11:14 PL [id number] 03/24/23 11:15 PL Document 03/31/23 10:57 PL [id number] 03/31/23 10:57 PL 03/24/23 03/31/23 11:14 10:57 Wound Center Nurse 2 #1 LEFT MONTEMAYOR CLUSTER -Time 09:14 09:06 -Correct Patient Yes Yes -Correct Side, Site, Position Yes Yes -Correct Procedure Yes Yes -Procedure Performed Yes Yes -Type of Procedure Debridement Debridement -Clinical Debridement Subcutaneous Subcutaneous -Tissue Removed Subcutaneous Subcutaneous -Post Debridement (cm) - Length 4.6 4.1 -Post Debridement (cm) - Width 1.9 1.2 -Post Debridement (cm) - Depth 0.2 0.3 -Total Square (Post) (cm) 8.74 4.92 -Area of Debridement (cm) - Length 4.6 4.1 -Area of Debridement (cm) - Width 1.9 1.2 -Total Square (Area) (cm) 8.74 4.92 -Tunneling No No -Undermining/Tunneling No No -Circular Undermining No No -Wound/Ulcer Outcome Not Healed Not Healed -Ulcer Cleansing Rinsed/ Rinsed/ Irrigated with Irrigated with Saline Saline -Foul Odor after Cleansing No No -Bioengineered Tissue No No -Bleeding Controlled with Pressure NA -Treatment Response Procedure Procedure Tolerated Well Tolerated Well -Debridement - Subq, 1st 20sq cm Yes Yes Pain Scale: 0-10 Numeric Is Patient Pain Free? Yes Yes - Nurse 3 - General Ulcer D/C NN Start: 03/24/23 08:59 Freq: Status: Active Protocol: Activity Type Activity Date Activity User E-sign Co-sign Detail Recorded Client Recorded Date Recorded By Document 03/24/23 09:28 RB Desktop 03/24/23 09:30 RB Document 01/09/24 09:17 KW Desktop 03/31/23 09:18 KW 03/24/23 03/31/23 09:28 09:17 Wound Care Center Nurse 3 #1 LEFT MONTEMAYOR CLUSTER -Ulcer Cleansing Rinsed/ Irrigated with Saline -Other Dressing medihoney/ pt own drsg silicone applied bordered foam Left -Other tubigrip single layer Treatment Response Procedure Tolerated Well Pain Scale: 0-10 Numeric Is Patient Pain Free? Yes Yes Teaching: Wound Center Dressing Your Wound -Person Taught Patient -Teaching Method Discussion, Demonstration -Response to teaching Verbalize understanding WC - Visit Discharge Discharge Condition Stable Stable Ambulatory Status Ambulatory Ambulatory Transportation Private Auto Private Auto Medication Reconcilliation completed & No No provided to patient/care provider Clinical Summary of Care Provided Yes Yes Assessment/Plan Assessment/Plan (1) Traumatic open wound of left lower leg: CODE(S): S81.802A - Unspecified open wound, left lower leg, initial encounter QUALIFIERS: Encounter type: subsequent encounter Qualified Code(s): S81.802D - Unspecified open wound, left lower leg, subsequent encounter PLAN: Open wound - subsequent encounter (2) Non-pressure chronic ulcer of left calf with fat layer exposed: CODE(S): L97.222 - Non-pressure chronic ulcer of left calf with fat layer exposed (3) Cellulitis of left leg: CODE(S): L03.116 - Cellulitis of left lower limb (4) Tobacco abuse disorder: CODE(S): Z72.0 - Tobacco use (5) Tobacco abuse counseling: CODE(S): Z71.6 - Tobacco abuse counseling (6) Hypertension: CODE(S): I10 - Essential (primary) hypertension (7) Sciatica: CODE(S): M54.30 - Sciatica, unspecified side PLAN: Plan This is a 72-year-old generally healthy female who presented with a traumatic wound on the left pretibial surface. The wound occurred as a result of a traumatic impact of her left pretibial surface against a coffee table. The patient developed a chronic, nonhealing wound with cellulitis. Most recently, she had been treated with a course of oral doxycycline. She had been using Neosporin and Telfa topically. Because of the presence of necrotic and nonviable tissue at the surface of her wound, we provided a prescription for Collagenase Santyl, to be applied on a daily basis. However, the patient's insurance coverage did not provide for this product, and the expense was beyond the patient's means. Therefore, she implemented the use of Medihoney, which she has been applying topically on a daily basis. It appears as though there has been some benefit since the patient's initial visit. Therefore, Medihoney is to be continued topically on a daily basis. The patient has been instructed in the appropriate means of application. Serial debridements are to continue, and are anticipated to rid the wound surface of the nonviable material. A gauze dressing has been recommended for use over the Medihoney with each application. If continued improvement is not observed with Medihoney, consideration may be given to the use of gauze?moistened Dakin solution. Once the nonviable and necrotic material at the surface of the wound is eliminated, we will consider the use of an EpiFix allograft, which has been preauthorized for use. Anni-wound erythema was noted recently at a prior visit, and cultures were obtained. Cultures were positive for Staphylococcus epidermidis, and the patient was started on Cipro 500 mg p.o. twice daily, which was in accordance with the antibiotic sensitivity results. The patient has now completed the course of oral Cipro. It appears as though there has been significant improvement since the oral antibiotic has been administered. The patient is to return in 1 week for reassessment. Total time: 25 minutes
[2023-04-14 09:22] VITALS: BP 132/59; PULSE 66; RESP 18; TEMP 36.6; BMI 24.5
--- NOTE | 2023-04-14 09:56 | HP.PCM_ITS ---
History of Present Illness Date of Service: 04/14/23 Chief Complaint: Traumatic wound of the left pretibial surface History of Wound: This is a 72-year-old female who is generally healthy and active. On approximately January 04, 2023, the patient lost her balance and fell, impacting her left pretibial surface against a coffee table. As result, she sustained an open wound on the left pretibial surface. She was using peroxide topically, and subsequently developed a cellulitis. Her primary care physician urged her to discontinue using peroxide topically, and she has been using a Telfa dressing with Neosporin. In treatment for her cellulitis, the patient has been treated with doxycycline 100 mg p.o. twice daily for 7 days, which is now nearly completed. The patient is active. She is relatively healthy, suffering only from hypertension and sciatica. She smokes only several cigarettes per day, and has been counseled as to the potential adverse effects. [facility] Medical History Cellulitis of left leg Hypertension Non-pressure chronic ulcer of left calf with fat layer exposed Sciatica Tobacco abuse counseling Tobacco abuse disorder Traumatic open wound of left lower leg Home Medications amlodipine 10 mg tablet (Norvasc) 10 mg PO DAILY 03/10/23 [History Last Taken Unknown] doxycycline hyclate 100 mg tablet 100 mg PO BID 03/10/23 [History Last Taken Unknown] gabapentin 300 mg capsule (Neurontin) 300 mg PO TID 03/10/23 [History Last Taken Unknown] hydrochlorothiazide 12.5 mg capsule 12.5 mg PO QODAY 03/10/23 [History Last Taken Unknown] meloxicam 15 mg tablet 15 mg PO DAILY 03/10/23 [History Last Taken Unknown] Surgical History no surgical history Social History Smoking Status: Light Smoker (<10/day) Vital Signs Vital Signs Vital Signs: 04/14/23 09:22 Temperature 97.8 F Temperature Source Temporal Pulse Rate 66 Respiratory Rate 18 Blood Pressure 132/59 H Blood Pressure Mean 83 Blood Pressure Source Monitor Blood Pressure Position Semi-Fowlers Blood Pressure Location Left Arm Oxygen Delivery Method Room Air Weight Weight: 145 lb Body Mass Index (BMI) 24.5 Physical Exam Const alert, oriented x3, no apparent distress, average body habitus and well nourished Constitutional Narrative: The patient is of relatively normal body habitus, with a BMI of 24.5. General Appearance: cooperative, comfortable, well kempt and well developed Orientation / Consciousness: awake, oriented to person, oriented to place and oriented to time Exam Limitations: no limitations HEENT normocephalic, head/scalp atraumatic, hearing grossly normal bilaterally and external ears normal Head and Scalp: normal to inspection, normocephalic and atraumatic External Ear: external ears normal Eyes PERRL and EOMs intact bilaterally General Eye: normal appearance of both eyes Resp normal respiratory effort, normal air movement, no retractions and no use of accessory muscles Effort and Inspection: able to speak in complete sentences Extremity no calf tenderness General Extremity: Negative for clubbing or cyanosis Skin Wound Narrative: The patient's lower extremities are warm and well-perfused. Pedal pulses are bilaterally palpable. No significant swelling is noted. An open wound is noted on the left pretibial surface. The dimensions are documented elsewhere. There is a mild amount of bioburden and nonviable/necrotic tissue. The amount of nonviable tissue has diminished since the patient's last visit. There are increasing areas of pink, healthy, granulation tissue. The periwound erythema is now nearly resolved. There is a small amount of bioburden. Neuro oriented x3, CN's II-XII intact bilaterally, moves all extremities, no focal motor deficits and no sensory deficits noted Sensorium / Orientation: awake, alert, oriented to person, oriented to place and oriented to time Psych Appearance: grossly normal and appropriate Attitude: calm Activity / Motor Behavior: appropriate eye contact Speech: normal speech Mood & Affect: euthymic mood Thought Process: normal thought process Thought Content: normal thought content Attention / Concentration: attention grossly intact Debridement Note Debridement Note Wound debrided: Left pretibial wound Laterality: Left Type of Debridement: Excisional debridement Anesthesia Used: 5% Lidocaine Gel Depth: Down to and including healthy tissue and in the subcutaneous layer Percentage of wound debrided: 100 Instrument Used: 5mm curette Severity: Fat Layer Exposed Amount of bleeding with debridement: Mild Bleeding Controlled with: Compression and gauze Patient tolerated procedure: Patient tolerated procedure well Debridement Free Text: Following a routine excisional debridement, which was well-tolerated by the patient, an allograft was applied. A 2 cm x 2 cm EpiFix allograft was selected. It was removed from its sterile packaging. It was cut and fashioned to the appropriate size and shape, and then applied topically to the open wound. 100% of the allograft was utilized. This represents the first such use of an EpiFix allograft. Adaptic Touch was then applied, and anchored in place with Steri-Strips. The procedure was well-tolerated. Post-Debridement Measurements and Additional Note: Post-Debridement Measurements/Treatment - Nurse 1 - General Ulcer Assessment Start: 03/24/23 08:59 Freq: Status: Active Protocol: LEE.LOWEXT Activity Type Activity Date Activity User E-sign Co-sign Detail Recorded Client Recorded Date Recorded By Document 03/24/23 08:59 RB Desktop 03/24/23 09:05 RB Document 03/31/23 08:50 RB Desktop 03/31/23 08:52 RB Document 04/07/23 09:33 KW Desktop 04/07/23 09:41 KW Document 04/14/23 09:22 KW Desktop 04/14/23 09:27 KW 03/24/23 03/31/23 04/07/23 08:59 08:50 09:33 - Today's Visit Information Type of service Follow-up Visit Follow-up Visit Follow-up Visit (Physician/ELEMENTARY [employer]CHOOL SOCIAL WORKER (Physician/ELEMENTARY SCHOOL SOCIAL WORKER (Physician/ELEMENTARY SCHOOL SOCIAL WORKER ) ) ) Arrival Mode Ambulatory Ambulatory Ambulatory Transfer Assistance None None Patient Identification Verified (Name & Yes Yes Yes ) Patient Requires Transmission-Based No No Precautions Height and Weight Body Mass Index (BMI) 24.5 24.5 24.5 BMI Classification Normal Normal Normal Vital Signs Temperature (97.8 F-99.1 F) 96.6 F L 96.5 F L 97.5 F L Temperature Source Temporal Temporal Temporal Pulse Rate (60-100) 70 72 69 Pulse Location Monitor Monitor Monitor Respiratory Rate (12-18) 18 18 18 Respiratory rate source Observation Observation Observation Oxygen Delivery Method Room Air Blood Pressure (90/60-120/80) 169/57 H 166/67 H 158/67 H Blood Pressure Mean 94 100 97 Source Monitor Monitor Monitor Position Semi-Fowlers Semi-Fowlers Sitting Blood Pressure Location Right Arm Left Arm Right Arm History Since Last Visit- (Skip if this is Patient's initial visit) Have you changed medications since your No No No last visit? Any new allergies or adverse reactions No No No Had a fall/change in ADL's that may No No No increase risk of falls Signs or symptoms of abuse and/or No No No neglect since last visit Have you been in the hospital since your No No No last visit? Has dressing in place as prescribed Yes Yes Yes Has compression in place as prescribed Yes Yes Yes Has offloadiing in place as prescribed No No No Experienced any changes in pain level or No No No management Left Footwear Regular Shoe Right Footwear Regular Shoe Pain Scale: 0-10 Numeric Is Patient Pain Free? Yes Yes No LLE -Description Tightness -Intensity 3 -Alleviating Factors/Interventions None 04/14/23 09:22 WC - Today's Visit Information Type of service Follow-up Visit (Physician/[employer] WORKER ) Arrival Mode Ambulatory Transfer Assistance Patient Identification Verified (Name & Yes ) Patient Requires Transmission-Based Precautions Height and Weight Body Mass Index (BMI) 24.5 BMI Classification Normal Vital Signs Temperature (97.8 F-99.1 F) 97.8 F Temperature Source Temporal Pulse Rate (60-100) 66 Pulse Location Monitor Respiratory Rate (12-18) 18 Respiratory rate source Observation Oxygen Delivery Method Room Air Blood Pressure (90/60-120/80) 132/59 H Blood Pressure Mean 83 Source Monitor Position Semi-Fowlers Blood Pressure Location Left Arm History Since Last Visit- (Skip if this is Patient's initial visit) Have you changed medications since your No last visit? Any new allergies or adverse reactions No Had a fall/change in ADL's that may No increase risk of falls Signs or symptoms of abuse and/or No neglect since last visit Have you been in the hospital since your No last visit? Has dressing in place as prescribed Yes Has compression in place as prescribed Yes Has offloadiing in place as prescribed No Experienced any changes in pain level or No management Left Footwear Regular Shoe Right Footwear Regular Shoe Pain Scale: 0-10 Numeric Is Patient Pain Free? Yes LLE -Description -Intensity -Alleviating Factors/Interventions - Nurse 1 - General Ulcer Measurement Start: 03/24/23 08:59 Freq: Status: Active Protocol: Activity Type Activity Date Activity User E-sign Co-sign Detail Recorded Client Recorded Date Recorded By Document 03/24/23 08:59 RB Desktop 03/24/23 09:05 RB Document 03/31/23 08:50 RB Desktop 03/31/23 08:52 RB Document 04/07/23 09:33 KW Desktop 04/07/23 09:41 KW Document 04/14/23 09:22 KW Desktop 04/14/23 09:27 KW 03/24/23 03/31/23 04/07/23 08:59 08:50 09:33 Wound Center Nurse 1 #1 LEFT MONTEMAYOR CLUSTER -Combined with other wound No No -Current Size (cm) - Length 4.6 4.1 4.3 -Current Size (cm) - Width 1.9 1.2 1 -Current Size (cm) - Depth 0.2 0.3 0.2 -Total Square Cm 8.74 4.92 4.3 -Date of Last Picture (Recall this field) -Photo Taken Yes -Tunneling No No -Undermining/Tunneling No No -Circular Undermining No No -Exudate Amt Medium Medium Small -Exudate Type Serosanguineous Serosanguineous Serosanguineous -Wound Margin Distinct, Thickened & Thickened Outline Rolled Under Attached -Granulation Amt Medium (34-66%) Medium (34-66%) Medium (34-66%) -Granulation Quality Ni[place]rara Niobrara Red -Slough/Fibrin Yes Yes -Necrosis Amt Medium (34-66%) Medium (34-66%) Medium (34-66%) -Necrotic Tissue Type Adherent Slough Adherent Slough Adherent Slough -Structure Exposed N/A N/A -Texture (Anni-wound Skin Appearance) Assessed Assessed, Assessed, Scarring Localized Edema -Moisture (Anni-wound Skin Appearance) Assessed Assessed Assessed -Color (Anni-wound Skin Appearance) Assessed Assessed Assessed, Erythema -Temperature (Anni-wound Skin No Abnormality No Abnormality No Abnormality Appearance) (Pt Warm) (Pt Warm) (Pt Warm) -Tenderness on Palpation (Anni-wound No No Skin Appearance) -Ulcer Cleansing Wound Cleanser Wound Cleanser Rinsed/ Irrigated with Saline -Foul Odor after Cleansing No No No -Anesthetic Used 5% Lidocaine 5% Lidocaine 5% Lidocaine Gel Gel Gel Lower Limb Edema Present Yes Yes Left Calf (cm) 32.5 32.5 31.5 Left Ankle (cm) 19 20.1 18.6 04/14/23 09:22 Wound Center Nurse 1 #1 LEFT MONTEMAYOR CLUSTER -Combined with other wound -Current Size (cm) - Length 3.4 -Current Size (cm) - Width 0.7 -Current Size (cm) - Depth 0.3 -Total Square Cm 2.38 -Date of Last Picture (Recall this 04/14/23 field) -Photo Taken Yes -Tunneling -Undermining/Tunneling -Circular Undermining -Exudate Amt Medium -Exudate Type Serosanguineous -Wound Margin Thickened -Granulation Amt Medium (34-66%) -Granulation Quality Ni[place]rara -Slough/Fibrin -Necrosis Amt Medium (34-66%) -Necrotic Tissue Type Adherent Slough -Structure Exposed -Texture (Anni-wound Skin Appearance) Assessed -Moisture (Anni-wound Skin Appearance) Assessed -Color (Anni-wound Skin Appearance) Assessed, Erythema -Temperature (Anni-wound Skin No Abnormality Appearance) (Pt Warm) -Tenderness on Palpation (Anni-wound Skin Appearance) -Ulcer Cleansing Soap and Water -Foul Odor after Cleansing -Anesthetic Used 5% Lidocaine Gel Lower Limb Edema Present Left Calf (cm) 32.2 Left Ankle (cm) 19.7 WC - Nurse 2 - General Ulcer CM Notes Start: 03/24/23 08:59 Freq: Status: Active Protocol: Activity Type Activity Date Activity User E-sign Co-sign Detail Recorded Client Recorded Date Recorded By Document 03/24/23 11:14 [id number] 03/24/23 11:15 PL Document 03/31/23 10:57 PL [id number] 03/31/23 10:57 PL Document 04/07/23 11:05 [id number] 04/07/23 11:06 PL 03/24/23 03/31/23 04/07/23 11:14 10:57 11:05 Wound Center Nurse 2 #1 LEFT MONTEMAYOR CLUSTER -Time 09:14 09:06 09:43 -Correct Patient Yes Yes Yes -Correct Side, Site, Position Yes Yes Yes -Correct Procedure Yes Yes Yes -Procedure Performed Yes Yes Yes -Type of Procedure Debridement Debridement Debridement -Clinical Debridement Subcutaneous Subcutaneous Subcutaneous -Tissue Removed Subcutaneous Subcutaneous Subcutaneous -Post Debridement (cm) - Length 4.6 4.1 4.3 -Post Debridement (cm) - Width 1.9 1.2 1.0 -Post Debridement (cm) - Depth 0.2 0.3 0.2 -Total Square (Post) (cm) 8.74 4.92 4.30 -Area of Debridement (cm) - Length 4.6 4.1 4.3 -Area of Debridement (cm) - Width 1.9 1.2 1.0 -Total Square (Area) (cm) 8.74 4.92 4.30 -Tunneling No No No -Undermining/Tunneling No No No -Circular Undermining No No No -Wound/Ulcer Outcome Not Healed Not Healed Not Healed -Ulcer Cleansing Rinsed/ Rinsed/ Rinsed/ Irrigated with Irrigated with Irrigated with Saline Saline Saline -Foul Odor after Cleansing No No No -Bioengineered Tissue No No No -Bleeding Controlled with Pressure NA Pressure -Treatment Response Procedure Procedure Procedure Tolerated Well Tolerated Well Tolerated Well -Debridement - Subq, 1st 20sq cm Yes Yes Yes Pain Scale: 0-10 Numeric Is Patient Pain Free? Yes Yes Yes - Nurse 3 - General Ulcer D/C NN Start: 03/24/23 08:59 Freq: Status: Active Protocol: Activity Type Activity Date Activity User E-sign Co-sign Detail Recorded Client Recorded Date Recorded By Document 03/24/23 09:28 RB Desktop 03/24/23 09:30 RB Document 03/31/23 09:17 KW Desktop 03/31/23 09:18 KW Document 04/14/23 09:54 KW Desktop 04/14/23 09:54 KW 03/24/23 03/31/23 04/14/23 09:28 09:17 09:54 Wound Care Center Nurse 3 #1 LEFT MONTEMAYOR CLUSTER -Ulcer Cleansing Rinsed/ Irrigated with Saline -Primary Dressing Applied Mepilex Border -Other Dressing medihoney/ pt own drsg silicone applied bordered foam -Mepilex Border 1 Left -Tubular Bandage Single Layer -Size of Tubigrip Used Size D -Size D ($) 1 -Other tubigrip single layer Treatment Response Procedure Tolerated Well Pain Scale: 0-10 Numeric Is Patient Pain Free? Yes Yes Yes Teaching: Wound Center Dressing Your Wound -Person Taught Patient -Teaching Method Discussion, Demonstration -Response to teaching Verbalize understanding WC - Visit Discharge Discharge Condition Stable Stable Stable Ambulatory Status Ambulatory Ambulatory Ambulatory Transportation Private Auto Private Auto Private Auto Medication Reconcilliation completed & No No No provided to patient/care provider Clinical Summary of Care Provided Yes Yes Yes Assessment/Plan Assessment/Plan (1) Traumatic open wound of left lower leg: CODE(S): S81.802A - Unspecified open wound, left lower leg, initial encounter QUALIFIERS: Encounter type: subsequent encounter Qualified Code(s): S81.802D - Unspecified open wound, left lower leg, subsequent encounter PLAN: Open wound - subsequent encounter (2) Non-pressure chronic ulcer of left calf with fat layer exposed: CODE(S): L97.222 - Non-pressure chronic ulcer of left calf with fat layer exposed (3) Cellulitis of left leg: CODE(S): L03.116 - Cellulitis of left lower limb (4) Tobacco abuse disorder: CODE(S): Z72.0 - Tobacco use (5) Tobacco abuse counseling: CODE(S): Z71.6 - Tobacco abuse counseling (6) Hypertension: CODE(S): I10 - Essential (primary) hypertension (7) Sciatica: CODE(S): M54.30 - Sciatica, unspecified side PLAN: Plan This is a 72-year-old generally healthy female who presented with a traumatic wound on the left pretibial surface. The wound occurred as a result of a traumatic impact of her left pretibial surface against a coffee table. The patient developed a chronic, nonhealing wound with cellulitis. Most recently, she had been treated with a course of oral doxycycline. She had been using Neosporin and Telfa topically. Because of the presence of necrotic and nonviable tissue at the surface of her wound, we provided a prescription for Collagenase Santyl, to be applied on a daily basis. However, the patient's insurance coverage did not provide for this product, and the expense was beyond the patient's means. Therefore, she implemented the use of Medihoney, which she has been applying topically on a daily basis. It appears as though there has been some benefit since the patient's initial visit. At present, there has been significant improvement in the appearance of the patient's wound, with resolution of the periwound erythema and the presence of pink, healthy granulation tissue. An EpiFix allograft was applied today, the first such allograft application. The allograft is to be left in place, undisturbed, until the patient returns in 1 week for reevaluation. Additional allograft applications are anticipated. Total time: 26 minutes.
[2023-04-21 09:56] VITALS: BP 141/64; PULSE 64; RESP 18; TEMP 36.6; BMI 24.5
--- NOTE | 2023-04-21 10:28 | HP.PCM_ITS ---
History of Present Illness Date of Service: 04/21/23 Chief Complaint: Traumatic wound of the left pretibial surface History of Wound: This is a 72-year-old female who is generally healthy and active. On approximately January 04, 2023, the patient lost her balance and fell, impacting her left pretibial surface against a coffee table. As result, she sustained an open wound on the left pretibial surface. She was using peroxide topically, and subsequently developed a cellulitis. Her primary care physician urged her to discontinue using peroxide topically, and she has been using a Telfa dressing with Neosporin. In treatment for her cellulitis, the patient has been treated with doxycycline 100 mg p.o. twice daily for 7 days, which is now nearly completed. The patient is active. She is relatively healthy, suffering only from hypertension and sciatica. She smokes only several cigarettes per day, and has been counseled as to the potential adverse effects. [facility] Medical History Cellulitis of left leg Hypertension Non-pressure chronic ulcer of left calf with fat layer exposed Sciatica Tobacco abuse counseling Tobacco abuse disorder Traumatic open wound of left lower leg Home Medications amlodipine 10 mg tablet (Norvasc) 10 mg PO DAILY 03/10/23 [History Last Taken Unknown] doxycycline hyclate 100 mg tablet 100 mg PO BID 03/10/23 [History Last Taken Unknown] gabapentin 300 mg capsule (Neurontin) 300 mg PO TID 03/10/23 [History Last Taken Unknown] hydrochlorothiazide 12.5 mg capsule 12.5 mg PO QODAY 03/10/23 [History Last Taken Unknown] meloxicam 15 mg tablet 15 mg PO DAILY 03/10/23 [History Last Taken Unknown] Surgical History no surgical history Social History Smoking Status: Light Smoker (<10/day) Vital Signs Vital Signs Vital Signs: 04/21/23 09:56 Temperature 98 F Temperature Source Temporal Pulse Rate 64 Respiratory Rate 18 Blood Pressure 141/64 H Blood Pressure Mean 89 Blood Pressure Source Monitor Blood Pressure Position Sitting Blood Pressure Location Right Arm Oxygen Delivery Method Room Air Weight Weight: 145 lb Body Mass Index (BMI) 24.5 Physical Exam Const alert, oriented x3, no apparent distress, average body habitus and well nourished Constitutional Narrative: The patient is of relatively normal body habitus, with a BMI of 24.5. General Appearance: cooperative, comfortable, well kempt and well developed Orientation / Consciousness: awake, oriented to person, oriented to place and oriented to time Exam Limitations: no limitations HEENT normocephalic, head/scalp atraumatic, hearing grossly normal bilaterally and external ears normal Head and Scalp: normal to inspection, normocephalic and atraumatic External Ear: external ears normal Eyes PERRL and EOMs intact bilaterally General Eye: normal appearance of both eyes Resp normal respiratory effort, normal air movement, no retractions and no use of accessory muscles Effort and Inspection: able to speak in complete sentences Extremity no calf tenderness General Extremity: Negative for clubbing or cyanosis Skin Wound Narrative: The patient's lower extremities are warm and well-perfused. Pedal pulses are bilaterally palpable. No significant swelling is noted. An open wound is noted on the left pretibial surface. The dimensions are documented elsewhere. The wound has decreased in size. There is a mild amount of bioburden and nonviable/necrotic tissue. The amount of nonviable tissue has diminished since the patient's last visit. There are increasing areas of pink, healthy, granulation tissue. The periwound erythema is resolved. There is a small amount of bioburden. Neuro oriented x3, CN's II-XII intact bilaterally, moves all extremities, no focal motor deficits and no sensory deficits noted Sensorium / Orientation: awake, alert, oriented to person, oriented to place and oriented to time Psych Appearance: grossly normal and appropriate Attitude: calm Activity / Motor Behavior: appropriate eye contact Speech: normal speech Mood & Affect: euthymic mood Thought Process: normal thought process Thought Content: normal thought content Attention / Concentration: attention grossly intact Debridement Note Debridement Note Wound debrided: Left pretibial wound Laterality: Left Type of Debridement: Excisional debridement Anesthesia Used: 5% Lidocaine Gel Depth: Down to and including healthy tissue and in the subcutaneous layer Percentage of wound debrided: 100 Instrument Used: 5mm curette Severity: Fat Layer Exposed Amount of bleeding with debridement: Mild Bleeding Controlled with: Compression and gauze Patient tolerated procedure: Patient tolerated procedure well Debridement Free Text: Following a routine excisional debridement, which was well-tolerated by the patient, an allograft was applied. A 2 cm x 2 cm EpiFix allograft was selected. It was removed from its sterile packaging. It was cut and fashioned to the appropriate size and shape, and then applied topically to the open wound. 100% of the allograft was utilized. This represents the second such use of an EpiFix allograft. Adaptic Touch was then applied, and anchored in place with Steri-Strips. The procedure was well-tolerated. Post-Debridement Measurements and Additional Note: Post-Debridement Measurements/Treatment - Nurse 1 - General Ulcer Assessment Start: 03/24/23 08:59 Freq: Status: Active Protocol: .LOWEXT Activity Type Activity Date Activity User E-sign Co-sign Detail Recorded Client Recorded Date Recorded By Document 03/24/23 08:59 RB Desktop 03/24/23 09:05 RB Document 03/31/23 08:50 RB Desktop 03/31/23 08:52 RB Document 04/07/23 09:33 KW Desktop 04/07/23 09:41 KW Document 04/14/23 09:22 KW Desktop 04/14/23 09:27 KW Document 04/21/23 09:56 MT Desktop 04/21/23 10:05 MT 03/24/23 03/31/23 04/07/23 08:59 08:50 09:33 - Today's Visit Information Type of service Follow-up Visit Follow-up Visit Follow-up Visit (Physician/PAGE TECHNICIAN (Physician/PAGE TECHNICIAN (Physician/PAGE TECHNICIAN ) ) ) Arrival Mode Ambulatory Ambulatory Ambulatory Transfer Assistance None None Accompanied by Patient Identification Verified (Name & Yes Yes Yes ) Patient Requires Transmission-Based No No Precautions Safety Precautions Height and Weight Body Mass Index (BMI) 24.5 24.5 24.5 BMI Classification Normal Normal Normal Vital Signs Temperature (97.8 F-99.1 F) 96.6 F L 96.5 F L 97.5 F L Temperature Source Temporal Temporal Temporal Pulse Rate (60-100) 70 72 69 Pulse Location Monitor Monitor Monitor Respiratory Rate (12-18) 18 18 18 Respiratory rate source Observation Observation Observation Oxygen Delivery Method Room Air Blood Pressure (90/60-120/80) 169/57 H 166/67 H 158/67 H Blood Pressure Mean 94 100 97 Source Monitor Monitor Monitor Position Semi-Fowlers Semi-Fowlers Sitting Blood Pressure Location Right Arm Left Arm Right Arm History Since Last Visit- (Skip if this is Patient's initial visit) Have you changed medications since your No No No last visit? Any new allergies or adverse reactions No No No Had a fall/change in ADL's that may No No No increase risk of falls Signs or symptoms of abuse and/or No No No neglect since last visit Have you been in the hospital since your No No No last visit? Has dressing in place as prescribed Yes Yes Yes Has compression in place as prescribed Yes Yes Yes Has offloadiing in place as prescribed No No No Experienced any changes in pain level or No No No management Left Footwear Regular Shoe Right Footwear Regular Shoe Pain Scale: 0-10 Numeric Is Patient Pain Free? Yes Yes No LLE -Description Tightness -Intensity 3 -Alleviating Factors/Interventions None 04/14/23 04/21/23 09:22 09:56 WC - Today's Visit Information Type of service Follow-up Visit Follow-up Visit (Physician/PAGE TECHNICIAN (Physician/PAGE TECHNICIAN ) ) Arrival Mode Ambulatory Ambulatory Transfer Assistance Accompanied by self Patient Identification Verified (Name & Yes Yes ) Patient Requires Transmission-Based Precautions Safety Precautions Fall Prevention Height and Weight Body Mass Index (BMI) 24.5 24.5 BMI Classification Normal Normal Vital Signs Temperature (97.8 F-99.1 F) 97.8 F 98 F Temperature Source Temporal Temporal Pulse Rate (60-100) 66 64 Pulse Location Monitor Monitor Respiratory Rate (12-18) 18 18 Respiratory rate source Observation Observation Oxygen Delivery Method Room Air Room Air Blood Pressure (90/60-120/80) 132/59 H 141/64 H Blood Pressure Mean 83 89 Source Monitor Monitor Position Semi-Fowlers Sitting Blood Pressure Location Left Arm Right Arm History Since Last Visit- (Skip if this is Patient's initial visit) Have you changed medications since your No last visit? Any new allergies or adverse reactions No Had a fall/change in ADL's that may No increase risk of falls Signs or symptoms of abuse and/or No neglect since last visit Have you been in the hospital since your No last visit? Has dressing in place as prescribed Yes Yes Has compression in place as prescribed Yes N/A Has offloadiing in place as prescribed No N/A Experienced any changes in pain level or No No management Left Footwear Regular Shoe Regular Shoe Right Footwear Regular Shoe Regular Shoe Pain Scale: 0-10 Numeric Is Patient Pain Free? Yes Yes LLE -Description -Intensity -Alleviating Factors/Interventions WC - Nurse 1 - General Ulcer Measurement Start: 03/24/23 08:59 Freq: Status: Active Protocol: Activity Type Activity Date Activity User E-sign Co-sign Detail Recorded Client Recorded Date Recorded By Document 03/24/23 08:59 RB Desktop 03/24/23 09:05 RB Document 03/31/23 08:50 RB Desktop 03/31/23 08:52 RB Document 04/07/23 09:33 KW Desktop 04/07/23 09:41 KW Document 04/14/23 09:22 KW Desktop 04/14/23 09:27 KW Document 04/21/23 09:56 MT Desktop 04/21/23 10:05 MT 03/24/23 03/31/23 04/07/23 08:59 08:50 09:33 Wound Center Nurse 1 #1 LEFT MONTEMAYOR CLUSTER -Combined with other wound No No -Current Size (cm) - Length 4.6 4.1 4.3 -Current Size (cm) - Width 1.9 1.2 1 -Current Size (cm) - Depth 0.2 0.3 0.2 -Total Square Cm 8.74 4.92 4.3 -Date of Last Picture (Recall this field) -Photo Taken Yes -Tunneling No No -Undermining/Tunneling No No -Circular Undermining No No -Exudate Amt Medium Medium Small -Exudate Type Serosanguineous Serosanguineous Serosanguineous -Wound Margin Distinct, Thickened & Thickened Outline Rolled Under Attached -Granulation Amt Medium (34-66%) Medium (34-66%) Medium (34-66%) -Granulation Quality Kiefer Kiefer Red -Slough/Fibrin Yes Yes -Necrosis Amt Medium (34-66%) Medium (34-66%) Medium (34-66%) -Necrotic Tissue Type Adherent Slough Adherent Slough Adherent Slough -Structure Exposed N/A N/A -Texture (Anni-wound Skin Appearance) Assessed Assessed, Assessed, Scarring Localized Edema -Moisture (Anni-wound Skin Appearance) Assessed Assessed Assessed -Color (Anni-wound Skin Appearance) Assessed Assessed Assessed, Erythema -Temperature (Anni-wound Skin No Abnormality No Abnormality No Abnormality Appearance) (Pt Warm) (Pt Warm) (Pt Warm) -Tenderness on Palpation (Anni-wound No No Skin Appearance) -Ulcer Cleansing Wound Cleanser Wound Cleanser Rinsed/ Irrigated with Saline -Foul Odor after Cleansing No No No -Anesthetic Used 5% Lidocaine 5% Lidocaine 5% Lidocaine Gel Gel Gel Lower Limb Edema Present Yes Yes Left Calf (cm) 32.5 32.5 31.5 Left Ankle (cm) 19 20.1 18.6 04/14/23 04/21/23 09:22 09:56 Wound Center Nurse 1 #1 LEFT MONTEMAYOR CLUSTER -Combined with other wound -Current Size (cm) - Length 3.4 4 -Current Size (cm) - Width 0.7 1.0 -Current Size (cm) - Depth 0.3 0.1 -Total Square Cm 2.38 4.0 -Date of Last Picture (Recall this 04/14/23 field) -Photo Taken Yes -Tunneling -Undermining/Tunneling -Circular Undermining -Exudate Amt Medium Small -Exudate Type Serosanguineous Serosanguineous -Wound Margin Thickened Flat & Intact -Granulation Amt Medium (34-66%) Large (67-100%) -Granulation Quality Kiefer Pale,Kiefer -Slough/Fibrin No -Necrosis Amt Medium (34-66%) Small (1-33%) -Necrotic Tissue Type Adherent Slough Adherent Slough -Structure Exposed -Texture (Anni-wound Skin Appearance) Assessed Assessed -Moisture (Anni-wound Skin Appearance) Assessed Assessed, Maceration -Color (Anni-wound Skin Appearance) Assessed, Assessed, Erythema Erythema -Temperature (Anni-wound Skin No Abnormality Appearance) (Pt Warm) -Tenderness on Palpation (Anni-wound No Skin Appearance) -Ulcer Cleansing Soap and Water Soap and Water -Foul Odor after Cleansing -Anesthetic Used 5% Lidocaine 5% Lidocaine Gel Gel Lower Limb Edema Present Left Calf (cm) 32.2 Left Ankle (cm) 19.7 WC - Nurse 2 - General Ulcer CM Notes Start: 03/24/23 08:59 Freq: Status: Active Protocol: Activity Type Activity Date Activity User E-sign Co-sign Detail Recorded Client Recorded Date Recorded By Document 03/24/23 11:14 PL [id number] 03/24/23 11:15 PL Document 01/09/24 10:57 PL [id number] 03/31/23 10:57 PL Document 04/07/23 11:05 PL [id number] 04/07/23 11:06 PL Document 04/14/23 12:16 PL [id number] 04/14/23 12:21 PL 03/24/23 03/31/23 04/07/23 11:14 10:57 11:05 Wound Center Nurse 2 #1 LEFT MONTEMAYOR CLUSTER -Time 09:14 09:06 09:43 -Correct Patient Yes Yes Yes -Correct Side, Site, Position Yes Yes Yes -Correct Procedure Yes Yes Yes -Procedure Performed Yes Yes Yes -Type of Procedure Debridement Debridement Debridement -Clinical Debridement Subcutaneous Subcutaneous Subcutaneous -Tissue Removed Subcutaneous Subcutaneous Subcutaneous -Post Debridement (cm) - Length 4.6 4.1 4.3 -Post Debridement (cm) - Width 1.9 1.2 1.0 -Post Debridement (cm) - Depth 0.2 0.3 0.2 -Total Square (Post) (cm) 8.74 4.92 4.30 -Area of Debridement (cm) - Length 4.6 4.1 4.3 -Area of Debridement (cm) - Width 1.9 1.2 1.0 -Total Square (Area) (cm) 8.74 4.92 4.30 -Tunneling No No No -Undermining/Tunneling No No No -Circular Undermining No No No -Wound/Ulcer Outcome Not Healed Not Healed Not Healed -Ulcer Cleansing Rinsed/ Rinsed/ Rinsed/ Irrigated with Irrigated with Irrigated with Saline Saline Saline -Foul Odor after Cleansing No No No -Bioengineered Tissue No No No -Type of Bioengineered Tissue -Expiration Date -Product Lot Number -Percent Used -Bleeding Controlled with Pressure NA Pressure -Treatment Response Procedure Procedure Procedure Tolerated Well Tolerated Well Tolerated Well -Debridement - Subq, 1st 20sq cm Yes Yes Yes -Apply Skin Sub - 1st 25 sq cm - Legs -Epifix (per sq cm) Pain Scale: 0-10 Numeric Is Patient Pain Free? Yes Yes Yes 04/14/23 12:16 Wound Center Nurse 2 #1 LEFT MONTEMAYOR CLUSTER -Time 09:37 -Correct Patient Yes -Correct Side, Site, Position Yes -Correct Procedure Yes -Procedure Performed Yes -Type of Procedure Debridement -Clinical Debridement Subcutaneous -Tissue Removed Subcutaneous -Post Debridement (cm) - Length 3.4 -Post Debridement (cm) - Width 0.7 -Post Debridement (cm) - Depth 0.3 -Total Square (Post) (cm) 2.38 -Area of Debridement (cm) - Length 3.4 -Area of Debridement (cm) - Width 0.7 -Total Square (Area) (cm) 2.38 -Tunneling No -Undermining/Tunneling No -Circular Undermining No -Wound/Ulcer Outcome Not Healed -Ulcer Cleansing Rinsed/ Irrigated with Saline -Foul Odor after Cleansing No -Bioengineered Tissue Yes -Type of Bioengineered Tissue Epifix -Expiration Date 12/22/27 -Product Lot Number [id number] -Percent Used 100 -Bleeding Controlled with Pressure -Treatment Response Procedure Tolerated Well -Debridement - Subq, 1st 20sq cm No -Apply Skin Sub - 1st 25 sq cm - Legs 1 -Epifix (per sq cm) 4 Pain Scale: 0-10 Numeric Is Patient Pain Free? Yes - Nurse 3 - General Ulcer D/C NN Start: 03/24/23 08:59 Freq: Status: Active Protocol: Activity Type Activity Date Activity User E-sign Co-sign Detail Recorded Client Recorded Date Recorded By Document 03/24/23 09:28 RB Desktop 03/24/23 09:30 RB Document 03/31/23 09:17 KW Desktop 03/31/23 09:18 KW Document 04/14/23 09:54 KW Desktop 04/14/23 09:54 KW 03/24/23 03/31/23 04/14/23 09:28 09:17 09:54 Wound Care Center Nurse 3 #1 LEFT MONTEMAYOR CLUSTER -Ulcer Cleansing Rinsed/ Irrigated with Saline -Primary Dressing Applied Mepilex Border -Other Dressing medihoney/ pt own drsg silicone applied bordered foam -Mepilex Border 1 Left -Tubular Bandage Single Layer -Size of Tubigrip Used Size D -Size D ($) 1 -Other tubigrip single layer Treatment Response Procedure Tolerated Well Pain Scale: 0-10 Numeric Is Patient Pain Free? Yes Yes Yes Teaching: Wound Center Dressing Your Wound -Person Taught Patient -Teaching Method Discussion, Demonstration -Response to teaching Verbalize understanding WC - Visit Discharge Discharge Condition Stable Stable Stable Ambulatory Status Ambulatory Ambulatory Ambulatory Transportation Private Auto Private Auto Private Auto Medication Reconcilliation completed & No No No provided to patient/care provider Clinical Summary of Care Provided Yes Yes Yes Assessment/Plan Assessment/Plan (1) Traumatic open wound of left lower leg: CODE(S): S81.802A - Unspecified open wound, left lower leg, initial encounter QUALIFIERS: Encounter type: subsequent encounter Qualified Code(s): S81.802D - Unspecified open wound, left lower leg, subsequent encounter PLAN: Open wound - subsequent encounter (2) Non-pressure chronic ulcer of left calf with fat layer exposed: CODE(S): L97.222 - Non-pressure chronic ulcer of left calf with fat layer exposed (3) Cellulitis of left leg: CODE(S): L03.116 - Cellulitis of left lower limb (4) Tobacco abuse disorder: CODE(S): Z72.0 - Tobacco use (5) Tobacco abuse counseling: CODE(S): Z71.6 - Tobacco abuse counseling (6) Hypertension: CODE(S): I10 - Essential (primary) hypertension (7) Sciatica: CODE(S): M54.30 - Sciatica, unspecified side PLAN: Plan This is a 72-year-old generally healthy female who presented with a traumatic wound on the left pretibial surface. The wound occurred as a result of a traumatic impact of her left pretibial surface against a coffee table. The patient developed a chronic, nonhealing wound with cellulitis. Most recently, she had been treated with a course of oral doxycycline. She had been using Neosporin and Telfa topically. Because of the presence of necrotic and nonviable tissue at the surface of her wound, we provided a prescription for Collagenase Santyl, to be applied on a daily basis. However, the patient's insurance coverage did not provide for this product, and the expense was beyond the patient's means. Therefore, she implemented the use of Medihoney. At present, there has been significant improvement in the appearance of the patient's wound, with resolution of the periwound erythema and the presence of pink, healthy granulation tissue. An EpiFix allograft was applied today, the second such allograft application. The allograft is to be left in place, undisturbed, until the patient returns in 1 week for reevaluation. Additional allograft applications are anticipated. Total time: 24 minutes.
== END 2023-04-22 23:59 | disposition home or self-care (01) ==
LOC: WC 09:45
PROVIDERS: PCP Internal Medicine; Referring Provider Internal Medicine; Visit Provider Surgery
DX: L97.222 Non-pressure chronic ulcer of left calf with fat layer exposed (principal); S81.802D Unspecified open wound, left lower leg, subsequent encounter; I10 Essential (primary) hypertension; F17.210 Nicotine dependence, cigarettes, uncomplicated; L03.116 Cellulitis of left lower limb; Z72.0 Tobacco use; Z71.6 Tobacco abuse counseling; M54.30 Sciatica, unspecified side
CPT/HCPCS: 11042; 15271; 87070; 87075; 87077; 87186; 87205; Q4186

== ENCOUNTER 2023-05-12 10:30 | Outpatient (RCR) | payer MEDICARE, OTHER, SELFPAY ==
[2023-04-23 00:56] VITALS: BP 141/64; PULSE 64; RESP 18; TEMP 36.6; BMI 24.5
[2023-04-28 10:23] VITALS: BP 151/56; PULSE 64; RESP 18; TEMP 36.8; BMI 24.5
--- NOTE | 2023-04-28 11:45 | PCM.WC.HP ---
History of Present Illness Date of Service: 04/28/23 Chief Complaint: Traumatic wound of the left pretibial surface History of Wound: This is a 72-year-old female who is generally healthy and active. On approximately January 04, 2023, the patient lost her balance and fell, impacting her left pretibial surface against a coffee table. As result, she sustained an open wound on the left pretibial surface. She was using peroxide topically, and subsequently developed a cellulitis. Her primary care physician urged her to discontinue using peroxide topically, and she has been using a Telfa dressing with Neosporin. In treatment for her cellulitis, the patient has been treated with doxycycline 100 mg p.o. twice daily for 7 days, which is now nearly completed. The patient is active. She is relatively healthy, suffering only from hypertension and sciatica. She smokes only several cigarettes per day, and has been counseled as to the potential adverse effects. [facility] Medical History Cellulitis of left leg Hypertension Non-pressure chronic ulcer of left calf with fat layer exposed Sciatica Tobacco abuse counseling Tobacco abuse disorder Traumatic open wound of left lower leg Home Medications amlodipine 10 mg tablet (Norvasc) 10 mg PO DAILY 03/10/23 [History Last Taken Unknown] doxycycline hyclate 100 mg tablet 100 mg PO BID 03/10/23 [History Last Taken Unknown] gabapentin 300 mg capsule (Neurontin) 300 mg PO TID 03/10/23 [History Last Taken Unknown] hydrochlorothiazide 12.5 mg capsule 12.5 mg PO QODAY 03/10/23 [History Last Taken Unknown] meloxicam 15 mg tablet 15 mg PO DAILY 03/10/23 [History Last Taken Unknown] Surgical History no surgical history Social History Smoking Status: Light Smoker (<10/day) Vital Signs Vital Signs Vital Signs: 04/28/23 10:23 Temperature 98.2 F Temperature Source Temporal Pulse Rate 64 Respiratory Rate 18 Blood Pressure 151/56 H Blood Pressure Mean 87 Blood Pressure Source Monitor Blood Pressure Position Sitting Blood Pressure Location Right Arm Oxygen Delivery Method Room Air Weight Weight: 145 lb Body Mass Index (BMI) 24.5 Physical Exam Const alert, oriented x3, no apparent distress, average body habitus and well nourished Constitutional Narrative: The patient is of relatively normal body habitus, with a BMI of 24.5. General Appearance: cooperative, comfortable, well kempt and well developed Orientation / Consciousness: awake, oriented to person, oriented to place and oriented to time Exam Limitations: no limitations HEENT normocephalic, head/scalp atraumatic, hearing grossly normal bilaterally and external ears normal Head and Scalp: normal to inspection, normocephalic and atraumatic External Ear: external ears normal Eyes PERRL and EOMs intact bilaterally General Eye: normal appearance of both eyes Resp normal respiratory effort, normal air movement, no retractions and no use of accessory muscles Effort and Inspection: able to speak in complete sentences Extremity no calf tenderness General Extremity: Negative for clubbing or cyanosis Skin Wound Narrative: The patient's lower extremities are warm and well-perfused. Pedal pulses are bilaterally palpable. No significant swelling is noted. An open wound is noted on the left pretibial surface. The dimensions are documented elsewhere. The wound has decreased in size. The wound appears pink and healthy in appearance, with evidence of peripheral epithelialization and granulation tissue. The periwound erythema has resolved. There is no sign of infection or cellulitis. There is a small amount of bioburden. Neuro oriented x3, CN's II-XII intact bilaterally, moves all extremities, no focal motor deficits and no sensory deficits noted Sensorium / Orientation: awake, alert, oriented to person, oriented to place and oriented to time Psych Appearance: grossly normal and appropriate Attitude: calm Activity / Motor Behavior: appropriate eye contact Speech: normal speech Mood & Affect: euthymic mood Thought Process: normal thought process Thought Content: normal thought content Attention / Concentration: attention grossly intact Debridement Note Debridement Note Wound debrided: Left pretibial wound Laterality: Left Type of Debridement: Excisional debridement Anesthesia Used: 5% Lidocaine Gel Depth: Down to and including healthy tissue and in the subcutaneous layer Percentage of wound debrided: 100 Instrument Used: 5mm curette Severity: Fat Layer Exposed Amount of bleeding with debridement: Mild Bleeding Controlled with: Compression and gauze Patient tolerated procedure: Patient tolerated procedure well Debridement Free Text: Following a routine excisional debridement, which was well-tolerated by the patient, an allograft was applied. A 2 cm x 2 cm EpiFix allograft was selected. It was removed from its sterile packaging. It was cut and fashioned to the appropriate size and shape, and then applied topically to the open wound. 100% of the allograft was utilized. This represents the third such use of an EpiFix allograft. Adaptic Touch was then applied, and anchored in place with Steri-Strips. The procedure was well-tolerated. Post-Debridement Measurements and Additional Note: Post-Debridement Measurements/Treatment - Nurse 1 - General Ulcer Assessment Start: 04/28/23 10:23 Freq: Status: Active Protocol: LAUREN Activity Type Activity Date Activity User E-sign Co-sign Detail Recorded Client Recorded Date Recorded By Document 04/28/23 10:23 [employer] Desktop 04/28/23 10:29 KW 04/28/23 10:23 - Today's Visit Information Type of service Follow-up Visit (Physician/TOBACCO PRIZER ) Arrival Mode Ambulatory Patient Identification Verified (Name & Yes ) Height and Weight Body Mass Index (BMI) 24.5 BMI Classification Normal Vital Signs Temperature (97.8 F-99.1 F) 98.2 F Temperature Source Temporal Pulse Rate (60-100) 64 Pulse Location Monitor Respiratory Rate (12-18) 18 Respiratory rate source Observation Oxygen Delivery Method Room Air Blood Pressure (90/60-120/80) 151/56 H Blood Pressure Mean 87 Source Monitor Position Sitting Blood Pressure Location Right Arm History Since Last Visit- (Skip if this is Patient's initial visit) Have you changed medications since your No last visit? Any new allergies or adverse reactions No Had a fall/change in ADL's that may No increase risk of falls Signs or symptoms of abuse and/or No neglect since last visit Have you been in the hospital since your No last visit? Has dressing in place as prescribed Yes Has compression in place as prescribed Yes Has offloadiing in place as prescribed N/A Experienced any changes in pain level or No management Left Footwear Regular Shoe Right Footwear Regular Shoe Pain Scale: 0-10 Numeric Is Patient Pain Free? Yes - Nurse 1 - General Ulcer Measurement Start: 04/28/23 10:23 Freq: Status: Active Protocol: Activity Type Activity Date Activity User E-sign Co-sign Detail Recorded Client Recorded Date Recorded By Document 04/28/23 10:23 KW [employer] 04/28/23 10:29 KW 04/28/23 10:23 Wound Center Nurse 1 #1 LEFT MONTEMAYOR CLUSTER -Current Size (cm) - Length 3.4 -Current Size (cm) - Width 0.9 -Current Size (cm) - Depth 0.2 -Total Square Cm 3.06 -Exudate Amt Small -Exudate Type Serosanguineous -Wound Margin Distinct, Outline Attached -Granulation Amt Large (67-100%) -Granulation Quality [place],Red -Necrosis Amt Small (1-33%) -Necrotic Tissue Type Adherent Slough -Texture (Anni-wound Skin Appearance) Assessed -Moisture (Anni-wound Skin Appearance) Assessed, Maceration -Color (Anni-wound Skin Appearance) Assessed -Temperature (Anni-wound Skin No Abnormality Appearance) (Pt Warm) -Ulcer Cleansing Soap and Water -Anesthetic Used 5% Lidocaine Gel Left Calf (cm) 34 Left Ankle (cm) 19 - Nurse 3 - General Ulcer D/C NN Start: 04/28/23 10:23 Freq: Status: Active Protocol: Activity Type Activity Date Activity User E-sign Co-sign Detail Recorded Client Recorded Date Recorded By Document 04/28/23 11:01 KW Desktop 04/28/23 11:02 KW 04/28/23 11:01 Wound Care Center Nurse 3 #1 LEFT MONTEMAYOR CLUSTER -Primary Dressing Applied Mepilex Border -Mepilex Border 1 Left -Tubular Bandage Single Layer -Size of Tubigrip Used Size D -Size D ($) 1 Pain Scale: 0-10 Numeric Is Patient Pain Free? Yes WC - Visit Discharge Discharge Condition Stable Ambulatory Status Ambulatory Medication Reconcilliation completed & No provided to patient/care provider Clinical Summary of Care Provided Yes Assessment/Plan Assessment/Plan (1) Traumatic open wound of left lower leg: CODE(S): S81.802A - Unspecified open wound, left lower leg, initial encounter QUALIFIERS: Encounter type: subsequent encounter Qualified Code(s): S81.802D - Unspecified open wound, left lower leg, subsequent encounter PLAN: Open wound - subsequent encounter (2) Non-pressure chronic ulcer of left calf with fat layer exposed: CODE(S): L97.222 - Non-pressure chronic ulcer of left calf with fat layer exposed (3) Cellulitis of left leg: CODE(S): L03.116 - Cellulitis of left lower limb (4) Tobacco abuse disorder: CODE(S): Z72.0 - Tobacco use (5) Tobacco abuse counseling: CODE(S): Z71.6 - Tobacco abuse counseling (6) Hypertension: CODE(S): I10 - Essential (primary) hypertension (7) Sciatica: CODE(S): M54.30 - Sciatica, unspecified side PLAN: Plan This is a 72-year-old generally healthy female who presented with a traumatic wound on the left pretibial surface. The wound occurred as a result of a traumatic impact of her left pretibial surface against a coffee table. The patient developed a chronic, nonhealing wound with cellulitis. Most recently, she had been treated with a course of oral doxycycline. She had been using Neosporin and Telfa topically. Because of the presence of necrotic and nonviable tissue at the surface of her wound, we provided a prescription for Collagenase Santyl, to be applied on a daily basis. However, the patient's insurance coverage did not provide for this product, and the expense was beyond the patient's means. Therefore, she implemented the use of Medihoney. At present, there has been significant improvement in the appearance of the patient's wound, with resolution of the periwound erythema and the presence of pink, healthy granulation tissue. An EpiFix allograft was applied today, the third such allograft application. The allograft is to be left in place, undisturbed, until the patient returns in 1 week for reevaluation. The patient's wound appears to be responding well to current modalities. Additional allograft applications are anticipated. Total time: 25 minutes.
[2023-05-05 10:05] VITALS: BP 139/56; PULSE 68; RESP 18; TEMP 36.7; BMI 24.5
--- NOTE | 2023-05-05 10:25 | PCM.WC.HP ---
History of Present Illness Date of Service: 05/05/23 Chief Complaint: Traumatic wound of the left pretibial surface History of Wound: This is a 72-year-old female who is generally healthy and active. On approximately January 04, 2023, the patient lost her balance and fell, impacting her left pretibial surface against a coffee table. As result, she sustained an open wound on the left pretibial surface. She was using peroxide topically, and subsequently developed a cellulitis. Her primary care physician urged her to discontinue using peroxide topically, and she has been using a Telfa dressing with Neosporin. In treatment for her cellulitis, the patient has been treated with doxycycline 100 mg p.o. twice daily for 7 days, which is now nearly completed. The patient is active. She is relatively healthy, suffering only from hypertension and sciatica. She smokes only several cigarettes per day, and has been counseled as to the potential adverse effects. [facility] Medical History Cellulitis of left leg Hypertension Non-pressure chronic ulcer of left calf with fat layer exposed Sciatica Tobacco abuse counseling Tobacco abuse disorder Traumatic open wound of left lower leg Home Medications amlodipine 10 mg tablet (Norvasc) 10 mg PO DAILY 03/10/23 [History Last Taken Unknown] doxycycline hyclate 100 mg tablet 100 mg PO BID 03/10/23 [History Last Taken Unknown] gabapentin 300 mg capsule (Neurontin) 300 mg PO TID 03/10/23 [History Last Taken Unknown] hydrochlorothiazide 12.5 mg capsule 12.5 mg PO QODAY 03/10/23 [History Last Taken Unknown] meloxicam 15 mg tablet 15 mg PO DAILY 03/10/23 [History Last Taken Unknown] Surgical History no surgical history Social History Smoking Status: Light Smoker (<10/day) Vital Signs Vital Signs Vital Signs: 05/05/23 10:05 Temperature 98.1 F Temperature Source Temporal Pulse Rate 68 Respiratory Rate 18 Blood Pressure 139/56 H Blood Pressure Mean 83 Blood Pressure Source Monitor Blood Pressure Position Sitting Blood Pressure Location Left Arm Oxygen Delivery Method Room Air Weight Weight: 145 lb Body Mass Index (BMI) 24.5 Physical Exam Const alert, oriented x3, no apparent distress, average body habitus and well nourished Constitutional Narrative: The patient is of relatively normal body habitus, with a BMI of 24.5. General Appearance: cooperative, comfortable, well kempt and well developed Orientation / Consciousness: awake, oriented to person, oriented to place and oriented to time Exam Limitations: no limitations HEENT normocephalic, head/scalp atraumatic, hearing grossly normal bilaterally and external ears normal Head and Scalp: normal to inspection, normocephalic and atraumatic External Ear: external ears normal Eyes PERRL and EOMs intact bilaterally General Eye: normal appearance of both eyes Resp normal respiratory effort, normal air movement, no retractions and no use of accessory muscles Effort and Inspection: able to speak in complete sentences Extremity no calf tenderness General Extremity: Negative for clubbing or cyanosis Skin Wound Narrative: The patient's lower extremities are warm and well-perfused. Pedal pulses are bilaterally palpable. No significant swelling is noted. An open wound is noted on the left pretibial surface. The dimensions are documented elsewhere. The wound has decreased in size. The wound appears pink and healthy in appearance, with evidence of peripheral epithelialization and granulation tissue. The periwound erythema has resolved. There is no sign of infection or cellulitis. There is a small amount of bioburden. Neuro oriented x3, CN's II-XII intact bilaterally, moves all extremities, no focal motor deficits and no sensory deficits noted Sensorium / Orientation: awake, alert, oriented to person, oriented to place and oriented to time Psych Appearance: grossly normal and appropriate Attitude: calm Activity / Motor Behavior: appropriate eye contact Speech: normal speech Mood & Affect: euthymic mood Thought Process: normal thought process Thought Content: normal thought content Attention / Concentration: attention grossly intact Debridement Note Debridement Note Wound debrided: Left pretibial wound Laterality: Left Type of Debridement: Excisional debridement Anesthesia Used: 5% Lidocaine Gel Depth: Down to and including healthy tissue and in the subcutaneous layer Percentage of wound debrided: 100 Instrument Used: 3mm curette Severity: Fat Layer Exposed Amount of bleeding with debridement: Mild Bleeding Controlled with: Compression and gauze Patient tolerated procedure: Patient tolerated procedure well Debridement Free Text: Following a routine excisional debridement, which was well-tolerated by the patient, an allograft was applied. A 2 cm x 2 cm EpiFix allograft was selected. It was removed from its sterile packaging. It was cut and fashioned to the appropriate size and shape, and then applied topically to the open wound. 100% of the allograft was utilized. This represents the 4th such use of an EpiFix allograft. Adaptic Touch was then applied, and anchored in place with Steri-Strips. The procedure was well-tolerated. Post-Debridement Measurements and Additional Note: Post-Debridement Measurements/Treatment WC - Nurse 1 - General Ulcer Assessment Start: 04/28/23 10:23 Freq: Status: Active Protocol: [employer] Activity Type Activity Date Activity User E-sign Co-sign Detail Recorded Client Recorded Date Recorded By Document 04/28/23 10:23 KW Desktop 04/28/23 10:29 KW Document 05/05/23 10:05 KW Desktop 05/05/23 10:12 KW 04/28/23 05/05/23 10:23 10:05 WC - Today's Visit Information Type of service Follow-up Visit Follow-up Visit (Physician/JELLY FILTER TENDER (Physician/JELLY FILTER TENDER ) ) Arrival Mode Ambulatory Ambulatory Patient Identification Verified (Name & Yes Yes ) Height and Weight Body Mass Index (BMI) 24.5 24.5 BMI Classification Normal Normal Vital Signs Temperature (97.8 F-99.1 F) 98.2 F 98.1 F Temperature Source Temporal Temporal Pulse Rate (60-100) 64 68 Pulse Location Monitor Monitor Respiratory Rate (12-18) 18 18 Respiratory rate source Observation Observation Oxygen Delivery Method Room Air Room Air Blood Pressure (90/60-120/80) 151/56 H 139/56 H Blood Pressure Mean 87 83 Source Monitor Monitor Position Sitting Sitting Blood Pressure Location Right Arm Left Arm History Since Last Visit- (Skip if this is Patient's initial visit) Have you changed medications since your No No last visit? Any new allergies or adverse reactions No No Had a fall/change in ADL's that may No No increase risk of falls Signs or symptoms of abuse and/or No No neglect since last visit Have you been in the hospital since your No No last visit? Has dressing in place as prescribed Yes Yes Has compression in place as prescribed Yes Yes Has offloadiing in place as prescribed N/A N/A Experienced any changes in pain level or No No management Left Footwear Regular Shoe Regular Shoe Right Footwear Regular Shoe Regular Shoe Pain Scale: 0-10 Numeric Is Patient Pain Free? Yes Yes - Nurse 1 - General Ulcer Measurement Start: 04/28/23 10:23 Freq: Status: Active Protocol: Activity Type Activity Date Activity User E-sign Co-sign Detail Recorded Client Recorded Date Recorded By Document 04/28/23 10:23 KW Desktop 04/28/23 10:29 KW Document 05/05/23 10:05 KW Desktop 05/05/23 10:12 KW 04/28/23 05/05/23 10:23 10:05 Wound Center Nurse 1 #1 LEFT MONTEMAYOR CLUSTER -Current Size (cm) - Length 3.4 2.7 -Current Size (cm) - Width 0.9 0.3 -Current Size (cm) - Depth 0.2 0.1 -Total Square Cm 3.06 0.81 -Photo Taken No -Exudate Amt Small Small -Exudate Type Serosanguineous Serosanguineous -Wound Margin Distinct, Distinct, Outline Outline Attached Attached -Granulation Amt Large (67-100%) Large (67-100%) -Granulation Quality [place],Red [place] -Necrosis Amt Small (1-33%) Medium (34-66%) -Necrotic Tissue Type Adherent Slough Adherent Slough -Texture (Anni-wound Skin Appearance) Assessed Assessed -Moisture (Anni-wound Skin Appearance) Assessed, Assessed, Maceration Maceration -Color (Anni-wound Skin Appearance) Assessed Assessed -Temperature (Anni-wound Skin No Abnormality Appearance) (Pt Warm) -Ulcer Cleansing Soap and Water Soap and Water -Anesthetic Used 5% Lidocaine 5% Lidocaine Gel Gel Left Calf (cm) 34 31.5 Left Ankle (cm) 19 18.8 - Nurse 2 - General Ulcer CM Notes Start: 04/28/23 10:23 Freq: Status: Active Protocol: Activity Type Activity Date Activity User E-sign Co-sign Detail Recorded Client Recorded Date Recorded By Document 04/28/23 12:14 PL [id number] 04/28/23 12:16 PL 04/28/23 12:14 Wound Center Nurse 2 #1 LEFT MONTEMAYOR CLUSTER -Time 10:45 -Correct Patient Yes -Correct Side, Site, Position Yes -Correct Procedure Yes -Procedure Performed Yes -Type of Procedure Debridement -Clinical Debridement Subcutaneous -Tissue Removed Subcutaneous -Post Debridement (cm) - Length 3.4 -Post Debridement (cm) - Width 0.9 -Post Debridement (cm) - Depth 0.2 -Total Square (Post) (cm) 3.06 -Area of Debridement (cm) - Length 3.4 -Area of Debridement (cm) - Width 0.9 -Total Square (Area) (cm) 3.06 -Tunneling No -Undermining/Tunneling No -Circular Undermining No -Wound/Ulcer Outcome Not Healed -Ulcer Cleansing Rinsed/ Irrigated with Saline -Foul Odor after Cleansing No -Bioengineered Tissue Yes -Type of Bioengineered Tissue Epifix -Expiration Date 12/22/27 -Product Lot Number [id number] -Percent Used 100 -Bleeding Controlled with Pressure -Treatment Response Procedure Tolerated Well -Debridement - Subq, 1st 20sq cm No -Apply Skin Sub - 1st 25 sq cm - Legs 1 -Epifix (per sq cm) 4 Pain Scale: 0-10 Numeric Is Patient Pain Free? Yes - Nurse 3 - General Ulcer D/C NN Start: 04/28/23 10:23 Freq: Status: Active Protocol: Activity Type Activity Date Activity User E-sign Co-sign Detail Recorded Client Recorded Date Recorded By Document 04/28/23 11:01 KW Desktop 04/28/23 11:02 KW 04/28/23 11:01 Wound Care Center Nurse 3 #1 LEFT MONTEMAYOR CLUSTER -Primary Dressing Applied Mepilex Border -Mepilex Border 1 Left -Tubular Bandage Single Layer -Size of Tubigrip Used Size D -Size D ($) 1 Pain Scale: 0-10 Numeric Is Patient Pain Free? Yes - Visit Discharge Discharge Condition Stable Ambulatory Status Ambulatory Medication Reconcilliation completed & No provided to patient/care provider Clinical Summary of Care Provided Yes Assessment/Plan Assessment/Plan (1) Traumatic open wound of left lower leg: CODE(S): S81.802A - Unspecified open wound, left lower leg, initial encounter QUALIFIERS: Encounter type: subsequent encounter Qualified Code(s): S81.802D - Unspecified open wound, left lower leg, subsequent encounter PLAN: Open wound - subsequent encounter (2) Non-pressure chronic ulcer of left calf with fat layer exposed: CODE(S): L97.222 - Non-pressure chronic ulcer of left calf with fat layer exposed (3) Cellulitis of left leg: CODE(S): L03.116 - Cellulitis of left lower limb (4) Tobacco abuse disorder: CODE(S): Z72.0 - Tobacco use (5) Tobacco abuse counseling: CODE(S): Z71.6 - Tobacco abuse counseling (6) Hypertension: CODE(S): I10 - Essential (primary) hypertension (7) Sciatica: CODE(S): M54.30 - Sciatica, unspecified side PLAN: Plan This is a 72-year-old generally healthy female who presented with a traumatic wound on the left pretibial surface. The wound occurred as a result of a traumatic impact of her left pretibial surface against a coffee table. The patient developed a chronic, nonhealing wound with cellulitis. Most recently, she had been treated with a course of oral doxycycline. She had been using Neosporin and Telfa topically. Because of the presence of necrotic and nonviable tissue at the surface of her wound, we provided a prescription for Collagenase Santyl, to be applied on a daily basis. However, the patient's insurance coverage did not provide for this product, and the expense was beyond the patient's means. Therefore, she implemented the use of Medihoney. At present, there has been significant improvement in the appearance of the patient's wound, with resolution of the periwound erythema and the presence of pink, healthy granulation tissue. An EpiFix allograft was applied today, the fourth such allograft application. The allograft is to be left in place, undisturbed, until the patient returns in 1 week for reevaluation. The patient's wound appears to be responding well to current modalities. Additional allograft applications are anticipated. Total time: 22 minutes.
[2023-05-12 10:52] VITALS: BP 142/56; PULSE 62; RESP 18; TEMP 36.6; BMI 24.5
--- NOTE | 2023-05-12 12:07 | PCM.WC.HP ---
History of Present Illness Date of Service: 05/12/23 Chief Complaint: Traumatic wound of the left pretibial surface History of Wound: This is a 72-year-old female who is generally healthy and active. On approximately January 04, 2023, the patient lost her balance and fell, impacting her left pretibial surface against a coffee table. As result, she sustained an open wound on the left pretibial surface. She was using peroxide topically, and subsequently developed a cellulitis. Her primary care physician urged her to discontinue using peroxide topically, and she has been using a Telfa dressing with Neosporin. In treatment for her cellulitis, the patient has been treated with doxycycline 100 mg p.o. twice daily for 7 days, which is now nearly completed. The patient is active. She is relatively healthy, suffering only from hypertension and sciatica. She smokes only several cigarettes per day, and has been counseled as to the potential adverse effects. [facility] Medical History Cellulitis of left leg Hypertension Non-pressure chronic ulcer of left calf with fat layer exposed Sciatica Tobacco abuse counseling Tobacco abuse disorder Traumatic open wound of left lower leg Home Medications amlodipine 10 mg tablet (Norvasc) 10 mg PO DAILY 03/10/23 [History Last Taken Unknown] doxycycline hyclate 100 mg tablet 100 mg PO BID 03/10/23 [History Last Taken Unknown] gabapentin 300 mg capsule (Neurontin) 300 mg PO TID 03/10/23 [History Last Taken Unknown] hydrochlorothiazide 12.5 mg capsule 12.5 mg PO QODAY 03/10/23 [History Last Taken Unknown] meloxicam 15 mg tablet 15 mg PO DAILY 03/10/23 [History Last Taken Unknown] Surgical History no surgical history Social History Smoking Status: Light Smoker (<10/day) Vital Signs Vital Signs Vital Signs: 05/12/23 10:52 Temperature 98 F Temperature Source Temporal Pulse Rate 62 Respiratory Rate 18 Blood Pressure 142/56 H Blood Pressure Mean 84 Oxygen Delivery Method Room Air Weight Weight: 145 lb Body Mass Index (BMI) 24.5 Physical Exam Const alert, oriented x3, no apparent distress, average body habitus and well nourished Constitutional Narrative: The patient is of relatively normal body habitus, with a BMI of 24.5. General Appearance: cooperative, comfortable, well kempt and well developed Orientation / Consciousness: awake, oriented to person, oriented to place and oriented to time Exam Limitations: no limitations HEENT normocephalic, head/scalp atraumatic, hearing grossly normal bilaterally and external ears normal Head and Scalp: normal to inspection, normocephalic and atraumatic External Ear: external ears normal Eyes PERRL and EOMs intact bilaterally General Eye: normal appearance of both eyes Resp normal respiratory effort, normal air movement, no retractions and no use of accessory muscles Effort and Inspection: able to speak in complete sentences Extremity no calf tenderness General Extremity: Negative for clubbing or cyanosis Skin Wound Narrative: The patient's lower extremities are warm and well-perfused. Pedal pulses are bilaterally palpable. No significant swelling is noted. An open wound is noted on the left pretibial surface. The dimensions are documented elsewhere. The wound has decreased in size significantly. The wound appears pink and healthy in appearance, with evidence of peripheral epithelialization and granulation tissue. The periwound erythema has resolved. There is no sign of infection or cellulitis. There is a small amount of bioburden. Neuro oriented x3, CN's II-XII intact bilaterally, moves all extremities, no focal motor deficits and no sensory deficits noted Sensorium / Orientation: awake, alert, oriented to person, oriented to place and oriented to time Psych Appearance: grossly normal and appropriate Attitude: calm Activity / Motor Behavior: appropriate eye contact Speech: normal speech Mood & Affect: euthymic mood Thought Process: normal thought process Thought Content: normal thought content Attention / Concentration: attention grossly intact Debridement Note Debridement Note Wound debrided: Left pretibial wound Laterality: Left Type of Debridement: Excisional debridement Anesthesia Used: 5% Lidocaine Gel Depth: Down to and including healthy tissue and in the subcutaneous layer Percentage of wound debrided: 100 Instrument Used: 3mm curette Severity: Fat Layer Exposed Amount of bleeding with debridement: Mild Bleeding Controlled with: Compression and gauze Patient tolerated procedure: Patient tolerated procedure well Debridement Free Text: Post-Debridement Measurements and Additional Note: Post-Debridement Measurements/Treatment LEE - Nurse 1 - General Ulcer Assessment Start: 04/28/23 10:23 Freq: Status: Active Protocol: LAUREN Activity Type Activity Date Activity User E-sign Co-sign Detail Recorded Client Recorded Date Recorded By Document 04/28/23 10:23 KW Desktop 04/28/23 10:29 KW Document 05/05/23 10:05 KW Desktop 05/05/23 10:12 KW Document 05/12/23 10:52 AR Desktop 05/12/23 11:04 AR 04/28/23 05/05/23 05/12/23 10:23 10:05 10:52 - Today's Visit Information Type of service Follow-up Visit Follow-up Visit Follow-up Visit (Physician/UNIX DEVELOPER (Physician/UNIX DEVELOPER (Physician/UNIX DEVELOPER ) ) ) Arrival Mode Ambulatory Ambulatory Ambulatory Accompanied by self Patient Identification Verified (Name & Yes Yes Yes ) Height and Weight Body Mass Index (BMI) 24.5 24.5 24.5 BMI Classification Normal Normal Normal Vital Signs Temperature (97.8 F-99.1 F) 98.2 F 98.1 F 98 F Temperature Source Temporal Temporal Temporal Pulse Rate (60-100) 64 68 62 Pulse Location Monitor Monitor Monitor Respiratory Rate (12-18) 18 18 18 Respiratory rate source Observation Observation Observation Oxygen Delivery Method Room Air Room Air Room Air Blood Pressure (90/60-120/80) 151/56 H 139/56 H 142/56 H Blood Pressure Mean 87 83 84 Source Monitor Monitor Position Sitting Sitting Blood Pressure Location Right Arm Left Arm History Since Last Visit- (Skip if this is Patient's initial visit) Have you changed medications since your No No last visit? Any new allergies or adverse reactions No No Had a fall/change in ADL's that may No No increase risk of falls Signs or symptoms of abuse and/or No No neglect since last visit Have you been in the hospital since your No No last visit? Has dressing in place as prescribed Yes Yes Has compression in place as prescribed Yes Yes Has offloadiing in place as prescribed N/A N/A Experienced any changes in pain level or No No management Left Footwear Regular Shoe Regular Shoe Regular Shoe Right Footwear Regular Shoe Regular Shoe Regular Shoe Pain Scale: 0-10 Numeric Is Patient Pain Free? Yes Yes Yes - Nurse 1 - General Ulcer Measurement Start: 04/28/23 10:23 Freq: Status: Active Protocol: Activity Type Activity Date Activity User E-sign Co-sign Detail Recorded Client Recorded Date Recorded By Document 04/28/23 10:23 KW Desktop 04/28/23 10:29 KW Document 05/05/23 10:05 [facility]/23 10:12 KW Document 05/12/23 10:52 [facility] 05/12/23 11:04 AR 04/28/23 05/05/23 05/12/23 10:23 10:05 10:52 Wound Center Nurse 1 #1 LEFT MONTEMAYOR CLUSTER -Current Size (cm) - Length 3.4 2.7 0.1 -Current Size (cm) - Width 0.9 0.3 0.1 -Current Size (cm) - Depth 0.2 0.1 0.1 -Total Square Cm 3.06 0.81 0.01 -Photo Taken No -Exudate Amt Small Small -Exudate Type Serosanguineous Serosanguineous -Wound Margin Distinct, Distinct, Outline Outline Attached Attached -Granulation Amt Large (67-100%) Large (67-100%) -Granulation Quality [place] -Necrosis Amt Small (1-33%) Medium (34-66%) -Necrotic Tissue Type Adherent Slough Adherent Slough -Texture (Anni-wound Skin Appearance) Assessed Assessed Assessed -Moisture (Anni-wound Skin Appearance) Assessed, Assessed, Assessed Maceration Maceration -Color (Anni-wound Skin Appearance) Assessed Assessed Assessed -Temperature (Anni-wound Skin No Abnormality No Abnormality Appearance) (Pt Warm) (Pt Warm) -Tenderness on Palpation (Anni-wound No Skin Appearance) -Ulcer Cleansing Soap and Water Soap and Water Soap and Water -Foul Odor after Cleansing No -Anesthetic Used 5% Lidocaine 5% Lidocaine 5% Lidocaine Gel Gel Gel Left Calf (cm) 34 31.5 32.5 Left Ankle (cm) 19 18.8 19.6 WC - Nurse 2 - General Ulcer CM Notes Start: 04/28/23 10:23 Freq: Status: Active Protocol: Activity Type Activity Date Activity User E-sign Co-sign Detail Recorded Client Recorded Date Recorded By Document 04/28/23 12:14 PL [id number] 04/28/23 12:16 PL Document 05/05/23 11:48 PL [id number] 05/05/23 11:50 PL Edit Result 05/05/23 11:48 PL (1) [id number] 05/05/23 11:52 PL (1) #1 LEFT MONTEMAYOR CLUSTER - Bioengineered Tissue No => Yes - Type of Bioengineered Tissue => Epifix - Expiration Date => 01/22/28 - Product Lot Number => [id number] - Percent Used => 100 - Debridement - Subq, 1st 20sq cm Yes => No - Apply Skin Sub - 1st 25 sq cm - Legs => 1 - Epifix (per sq cm) => 4 04/28/23 05/05/23 12:14 11:48 Wound Center Nurse 2 #1 LEFT MONTEMAYOR CLUSTER -Time 10:45 10:15 -Correct Patient Yes Yes -Correct Side, Site, Position Yes Yes -Correct Procedure Yes Yes -Procedure Performed Yes Yes -Type of Procedure Debridement Debridement -Clinical Debridement Subcutaneous Subcutaneous -Tissue Removed Subcutaneous Subcutaneous -Post Debridement (cm) - Length 3.4 2.7 -Post Debridement (cm) - Width 0.9 0.3 -Post Debridement (cm) - Depth 0.2 0.1 -Total Square (Post) (cm) 3.06 0.81 -Area of Debridement (cm) - Length 3.4 2.7 -Area of Debridement (cm) - Width 0.9 0.3 -Total Square (Area) (cm) 3.06 0.81 -Tunneling No No -Undermining/Tunneling No No -Circular Undermining No No -Wound/Ulcer Outcome Not Healed Not Healed -Ulcer Cleansing Rinsed/ Rinsed/ Irrigated with Irrigated with Saline Saline -Foul Odor after Cleansing No No -Bioengineered Tissue Yes Yes -Type of Bioengineered Tissue Epifix Epifix -Expiration Date 12/22/27 01/22/28 -Product Lot Number [id number] -Percent Used 100 100 -Bleeding Controlled with Pressure Pressure -Treatment Response Procedure Procedure Tolerated Well Tolerated Well -Debridement - Subq, 1st 20sq cm No No -Apply Skin Sub - 1st 25 sq cm - Legs 1 1 -Epifix (per sq cm) 4 4 Pain Scale: 0-10 Numeric Is Patient Pain Free? Yes Yes WC - Nurse 3 - General Ulcer D/C NN Start: 04/28/23 10:23 Freq: Status: Active Protocol: Activity Type Activity Date Activity User E-sign Co-sign Detail Recorded Client Recorded Date Recorded By Document 04/28/23 11:01 KW Desktop 04/28/23 11:02 KW Document 05/05/23 10:29 KW Desktop 05/05/23 10:29 KW Document 05/12/23 11:44 KW Desktop 05/12/23 11:44 KW 04/28/23 05/05/23 05/12/23 11:01 10:29 11:44 Wound Care Center Nurse 3 #1 LEFT MONTEMAYOR CLUSTER -Primary Dressing Applied Mepilex Border Mepilex Border Mepilex Border -Primary Dressing Covered/Secured with Dry Gauze -Mepilex Border 1 1 1 Left -Tubular Bandage Single Layer Single Layer Single Layer -Size of Tubigrip Used Size D Size D Size D -Size D ($) 1 1 1 Pain Scale: 0-10 Numeric Is Patient Pain Free? Yes Yes Yes WC - Visit Discharge Discharge Condition Stable Stable Stable Ambulatory Status Ambulatory Ambulatory Ambulatory Transportation Private Auto Private Auto Medication Reconcilliation completed & No No No provided to patient/care provider Clinical Summary of Care Provided Yes Yes Yes Assessment/Plan Assessment/Plan (1) Traumatic open wound of left lower leg: CODE(S): S81.802A - Unspecified open wound, left lower leg, initial encounter QUALIFIERS: Encounter type: subsequent encounter Qualified Code(s): S81.802D - Unspecified open wound, left lower leg, subsequent encounter PLAN: Open wound - subsequent encounter (2) Non-pressure chronic ulcer of left calf with fat layer exposed: CODE(S): L97.222 - Non-pressure chronic ulcer of left calf with fat layer exposed (3) Cellulitis of left leg: CODE(S): L03.116 - Cellulitis of left lower limb (4) Tobacco abuse disorder: CODE(S): Z72.0 - Tobacco use (5) Tobacco abuse counseling: CODE(S): Z71.6 - Tobacco abuse counseling (6) Hypertension: CODE(S): I10 - Essential (primary) hypertension (7) Sciatica: CODE(S): M54.30 - Sciatica, unspecified side PLAN: Plan This is a 72-year-old generally healthy female who presented with a traumatic wound on the left pretibial surface. The wound occurred as a result of a traumatic impact of her left pretibial surface against a coffee table. The patient developed a chronic, nonhealing wound with cellulitis. Most recently, she had been treated with a course of oral doxycycline. She had been using Neosporin and Telfa topically. Because of the presence of necrotic and nonviable tissue at the surface of her wound, we provided a prescription for Collagenase Santyl, to be applied on a daily basis. However, the patient's insurance coverage did not provide for this product, and the expense was beyond the patient's means. Therefore, she implemented the use of Medihoney. Following improvement with use of Medihoney, a series of EpiFix allografts were applied, a total of 4. Significant improvement was noted with the use of serial allograft applications. Upon presentation today, the wound is now nearly completely healed. Therefore, we are to transition to the use of collagen hydrogel, which will be applied topically on a daily basis. The patient has been instructed in the appropriate means of application. The patient is to return in 1 week for reevaluation. Total time: 24 minutes.
== END 2023-05-21 23:59 | disposition home or self-care (01) ==
LOC: WC 10:30
PROVIDERS: PCP Internal Medicine; Referring Provider Internal Medicine; Visit Provider Surgery
DX: L97.222 Non-pressure chronic ulcer of left calf with fat layer exposed (principal); S81.802D Unspecified open wound, left lower leg, subsequent encounter; F17.210 Nicotine dependence, cigarettes, uncomplicated; I10 Essential (primary) hypertension; L03.116 Cellulitis of left lower limb; Z71.6 Tobacco abuse counseling; M54.30 Sciatica, unspecified side
CPT/HCPCS: 11042; 15271; Q4186

== ENCOUNTER 2023-05-28 09:30 | Outpatient (RCR) | payer MEDICARE, OTHER, SELFPAY ==
[2023-05-22 00:38] VITALS: BP 142/56; PULSE 62; RESP 18; TEMP 36.6; BMI 24.5
[2023-05-28 09:50] VITALS: BP 139/69; PULSE 65; RESP 20; TEMP 36.4; BMI 24.5
--- NOTE | 2023-05-28 10:08 | HP.PCM_ITS ---
History of Present Illness Date of Service: 05/28/23 Chief Complaint: Traumatic wound of the left pretibial surface History of Wound: This is a 72-year-old female who is generally healthy and active. On approximately January 04, 2023, the patient lost her balance and fell, impacting her left pretibial surface against a coffee table. As result, she sustained an open wound on the left pretibial surface. She was using peroxide topically, and subsequently developed a cellulitis. Her primary care physician urged her to discontinue using peroxide topically, and she has been using a Telfa dressing with Neosporin. In treatment for her cellulitis, the patient has been treated with doxycycline 100 mg p.o. twice daily for 7 days, which is now nearly completed. The patient is active. She is relatively healthy, suffering only from hypertension and sciatica. She smokes only several cigarettes per day, and has been counseled as to the potential adverse effects. [facility] Medical History Cellulitis of left leg Hypertension Non-pressure chronic ulcer of left calf with fat layer exposed Sciatica Tobacco abuse counseling Tobacco abuse disorder Traumatic open wound of left lower leg Home Medications amlodipine 10 mg tablet (Norvasc) 10 mg PO DAILY 03/10/23 [History Last Taken Unknown] doxycycline hyclate 100 mg tablet 100 mg PO BID 03/10/23 [History Last Taken Unknown] gabapentin 300 mg capsule (Neurontin) 300 mg PO TID 03/10/23 [History Last Taken Unknown] hydrochlorothiazide 12.5 mg capsule 12.5 mg PO QODAY 03/10/23 [History Last Taken Unknown] meloxicam 15 mg tablet 15 mg PO DAILY 03/10/23 [History Last Taken Unknown] Surgical History no surgical history Social History Smoking Status: Light Smoker (<10/day) ROS Constitutional Constitutional: Denies anorexia, change in weight, chills, fatigue or fever(s) Eyes Eyes: Denies blurry vision, change in vision or double vision ENT HEENT: Denies dysphagia, nasal congestion, nasal discharge or sore throat Cardiovascular Cardiovascular: Denies chest pain, claudication or palpitations Respiratory/Chest Respiratory/Chest: Denies cough, shortness of breath at rest or wheezing Gastrointestinal Gastrointestinal: Denies abdominal pain, constipation, diarrhea, nausea or vomiting Genitourinary Genitourinary: Denies dysuria, hematuria, urinary frequency or urinary urgency Musculoskeletal Musculoskeletal: Denies joint pain, joint stiffness or joint swelling Integumentary Integumentary: Denies lesions, pruritus or rash Neurologic Neurologic: Denies dizziness, numbness or seizures Psychiatric Psychiatric: Denies depression Endocrine Endocrinology: Denies cold intolerance or heat intolerance Hematologic/Lymphatic Hematologic/Lymphatic: Denies easy bleeding or easy bruising Vital Signs Vital Signs Vital Signs: 05/28/23 09:50 Temperature 97.5 F L Temperature Source Temporal Pulse Rate 65 Respiratory Rate 20 H Blood Pressure 139/69 H Blood Pressure Mean 92 Blood Pressure Source Monitor Weight Weight: 65.771 kg Body Mass Index (BMI) 24.5 Physical Exam Const alert, oriented x3 and no apparent distress General Appearance: cooperative HEENT normocephalic Eyes General Eye: normal appearance of both eyes Neck General: normal visual inspection Lymph Lymphatic: no lymphadenopathy noted and no lymphedema noted Resp normal respiratory effort Cardio regular rate and regular rhythm Extremity normal capillary refill, no joint enlargement, no calf tenderness and no pedal edema Extremity Narrative: Left lower extremity: Vascular: DP and PT pulses palpable with adequate capillary fill time to digits. Dermatological: Previous ulceration noted to the anterior aspect/pretibial left lower extremity has healed at this time with full epithelialization. There is noted scarring secondary to the healing of the previous wound site. Skin is intact however still friable as this is new skin formation. No signs of infection. Neurological: Motor function intact, gross sensation intact, light touch sensation intact. No focal deficits noted. Musculoskeletal: Muscle strength 5 of 5 age-appropriate. Full, pain-free range of motion to the ankle joint, subtalar joint, midtarsal joint, and first metatarsophalangeal joint. Skin no rashes or lesions noted, skin turgor normal and no jaundice Neuro moves all extremities Debridement Note Debridement Note No debridement was completed: No debridement was completed today Post-Debridement Measurements and Additional Note: Post-Debridement Measurements/Treatment LEE - Nurse 1 - General Ulcer Assessment Start: 05/28/23 09:49 Freq: Status: Active Protocol: LOWEXT Activity Type Activity Date Activity User E-sign Co-sign Detail Recorded Client Recorded Date Recorded By Document 05/28/23 09:50 DL Desktop 05/28/23 09:57 DL 05/28/23 09:50 WC - Today's Visit Information Type of service 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 ) Arrival Mode Ambulatory Transfer Assistance None Patient Identification Verified (Name & Yes ) Patient Requires Transmission-Based No Precautions Height and Weight Body Mass Index (BMI) 24.5 BMI Classification Normal Vital Signs Temperature (97.8 F-99.1 F) 97.5 F L Temperature Source Temporal Pulse Rate (60-100) 65 Pulse Location Monitor Respiratory Rate (12-18) 20 H Respiratory rate source Observation Blood Pressure (90/60-120/80) 139/69 H Blood Pressure Mean 92 Source Monitor History Since Last Visit- (Skip if this is Patient's initial visit) Have you changed medications since your No last visit? Any new allergies or adverse reactions No Had a fall/change in ADL's that may No increase risk of falls Signs or symptoms of abuse and/or No neglect since last visit Have you been in the hospital since your No last visit? Has dressing in place as prescribed Yes Has compression in place as prescribed Yes Has offloadiing in place as prescribed N/A Experienced any changes in pain level or No management Pain Scale: 0-10 Numeric Is Patient Pain Free? Yes - Nurse 1 - General Ulcer Measurement Start: 05/28/23 09:49 Freq: Status: Active Protocol: Activity Type Activity Date Activity User E-sign Co-sign Detail Recorded Client Recorded Date Recorded By Document 05/28/23 09:50 DL Desktop 05/28/23 09:57 DL 05/28/23 09:50 Wound Center Nurse 1 #1 LEFT MONTEMAYOR CLUSTER -Current Size (cm) - Length 0.1 -Current Size (cm) - Width 0.1 -Current Size (cm) - Depth 0.1 -Total Square Cm 0.01 -Photo Taken Yes -Exudate Amt None Present -Wound Margin Flat & Intact -Granulation Amt Small (1-33%) -Granulation Quality [place] -Necrosis Amt None Present (0 %) -Structure Exposed N/A -Texture (Anni-wound Skin Appearance) Scarring -Moisture (Anni-wound Skin Appearance) No Abnormality -Color (Anni-wound Skin Appearance) No Abnormality, Hemosiderin Staining -Temperature (Anni-wound Skin No Abnormality Appearance) (Pt Warm) -Tenderness on Palpation (Anni-wound No Skin Appearance) -Ulcer Cleansing Soap and Water -Foul Odor after Cleansing No Left Calf (cm) 30 Left Ankle (cm) 18.8 Assessment/Plan Assessment/Plan (1) Non-pressure chronic ulcer of left calf with fat layer exposed: CODE(S): L97.222 - Non-pressure chronic ulcer of left calf with fat layer exposed (2) Traumatic open wound of left lower leg: CODE(S): S81.802A - Unspecified open wound, left lower leg, initial encounter QUALIFIERS: Encounter type: subsequent encounter Qualified Code(s): S81.802D - Unspecified open wound, left lower leg, subsequent encounter (3) Hypertension: CODE(S): I10 - Essential (primary) hypertension PLAN: Plan Patient seen and evaluated Patient is seen on behalf of Dr. Alford who is out of office. No debridement performed today. Previous ulceration noted to the anterior aspect/pretibial left lower extremity has healed at this time with full epithelialization. There is noted scarring secondary to the healing of the previous wound site. Skin is intact however still friable as this is new skin formation. No signs of infection. Discussed discontinuing applications of hydrogel at this time with wound healed. Recommended Band-Aid covering of fragile skin for next 7 to 10 days with continued application of Tubigrip compression stocking. She may discontinue after the 7 to 10-day period. At this time with wound healed and surrounding skin healthy she is being discha rged from the wound care center today. Patient is pleased with her healing status. She may return to the wound care center as needed or for any other wounds. She was encouraged to call with any questions or concerns and may return to myself or Dr. Alford for continued care.
== END 2023-05-28 16:05 | disposition home or self-care (01) ==
LOC: WC 09:30
PROVIDERS: PCP Internal Medicine; Referring Provider Internal Medicine
DX: L97.222 Non-pressure chronic ulcer of left calf with fat layer exposed (principal); I10 Essential (primary) hypertension; M54.30 Sciatica, unspecified side; F17.210 Nicotine dependence, cigarettes, uncomplicated; S81.802D Unspecified open wound, left lower leg, subsequent encounter
CPT/HCPCS: 99213; G0463